=== PATIENT | male | born 1955 | race Caucasian/White ===

== ENCOUNTER 2018-03-26 16:21 | Inpatient (IN) | payer OTHER, SELFPAY ==
--- NOTE | 2018-03-26 17:10 | RAD REPORT ---
EXAM DESCRIPTION: [place] Single View03/26/2018 4:57 pm CLINICAL HISTORY: Chest pain COMPARISON: none FINDINGS: A 4.5 centimeter opacity is present within the mid right lung. The left lung is clear. The lungs are hyperaerated The heart is normal size IMPRESSION: 4.5 centimeter opacity within the mid right lung may represent neoplasm or pneumonia. C T chest is recommended
[2018-03-26 17:12] LABS: Absolute Neutrophil 4.3 K/uL (1.8-8.0); Basophils % 0.3 % (0-1.3); Eosinophils % 0.5 % (0-4.4); Hematocrit 31.5 % (39.6-49.0); MPV 9.8 fL (7.6-11.3); Monocytes % 15.1 % (3.3-12.3); Protime INR 1.12; RBC Red Blood Cell Count 3.03 M/uL (4.33-5.43)
[2018-03-26] MEDS ORDERED: NA CHLORIDE 0.9% 1,000 ML ONE (17:25)
[2018-03-26 17:34] LABS: ALT/SGPT 21 U/L (12-78); AST/SGOT 60 U/L (15-37); Albumin 2.6 g/dL (3.4-5.0); Alkaline Phosphatase 133 U/L (45-117); BUN Blood Urea Nitrogen 18 mg/dL (7-18); Bicarbonate 33 mmol/L (21-32); Bilirubin Direct 0.5 mg/dL (0-0.2); Bilirubin Total 0.8 mg/dL (0.2-1.0); Glucose Level 111 mg/dL (74-106); Magnesium 1.5 mg/dL (1.8-2.4); NT PRO-BNP 157 pg/mL (<125); Protein, Total 6.6 g/dL (6.4-8.2); Sodium Level 129 mmol/L (136-145); Troponin (Emerg Dept Use Only) < 0.02 ng/mL (0.0-0.045)
[2018-03-26 17:37] LABS: Potassium 2.6 mmol/L (3.5-5.1)
[2018-03-26] MEDS ORDERED: POTASSIUM 25 MEQ EFFERV TAB ONE (18:00)
[2018-03-26] MEDS ORDERED: Magnesium Sulfate 2gm IVPB 2 G/50 ML BAG IV ONE (18:01)
--- NOTE | 2018-03-26 18:14 | RAD REPORT ---
EXAM DESCRIPTION: CT - Thorax W/ Con CLINICAL HISTORY: Chest pain PAIN COMPARISON: Chest Single View dated 03/26/2018 FINDINGS: The lungs are mildly emphysematous. An irregular mass lesion is identified in the lateral right upper lobe measuring 4.5 x 3.7 cm abutting the pleural surface. There is a significant amount o f internal necrosis present. No pleural thickening or pleural effusion. No pneumothorax. No axillary, mediastinal or hilar adenopathy. No concerning bony finding. Diffuse fatty liver. All CT scans are performed using dose optimization technique as appropriate and may include automated exposure control or mA/KV adjustment according to patient size. IMPRESSION: Irregular mass lesion lateral right upper lobe (4.1 x 3.7 cm) with internal necrosis, li venus neoplastic.
[2018-03-26 18:20] LABS: Blood Morphology Comment NOT SEEN (NOT SEEN); Platelet Estimate DECR
[2018-03-26] MEDS ORDERED: PIPER/TAZO/NS 3.375gm 3.375 GM/100 ML BAG ONE (18:41)
--- NOTE | 2018-03-26 18:41 | ER ---
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 Chest pain is described as "dull pressure". Transition of care: patient was not received from another setting of care. Onset of symptoms was March 24, 2018. Risk Assessment: Do you want to hurt yourself or someone else? Patient reports no desire to harm self or others. Care prior to arrival: None. 16:30 Method Of Arrival: Ambulatory hb 16:30 Acuity: WALT 3 hb 18:44 Initial Sepsis Screen: Does the patient meet any 2 criteria? No. Patient's initial rv sepsis screen is negative. Does the patient have a suspected source of infection? No. Patient's initial sepsis screen is negative. Historical: - Allergies: 16:33 No Known Allergies; hb - Home Meds: 16:33 None [Active]; hb - PMHx: 16:33 None; hb - PSHx: 16:33 Vasectomy; hb - Immunization history:: Adult Immunizations up to date. - Social history:: Smoking status: Patient uses tobacco products, smokes one-half pack cigarettes per day. - Ebola Screening: : No symptoms or risks identified at this time. Screenin:44 Abuse screen: Denies threats or abuse. Denies injuries from another. Nutritional rv screening: No deficits noted. Tuberculosis screening: No symptoms or risk factors identified. Fall Risk None identified. Assessment: 17:00 General: Appears in no apparent distress. uncomfortable, Behavior is calm, cooperative. rv 17:00 Pain: Complains of pain in chest. Neuro: Level of Consciousness is awake, alert, obeys rv commands, Oriented to person, place, time, situation. Cardiovascular: Capillary refill < 3 seconds. Respiratory: Airway is patent. GI: No signs and/or symptoms were reported involving the gastrointestinal system. : No signs and/or symptoms were reported regarding the genitourinary system. EENT: No signs and/or symptoms were reported regarding the EENT system. Derm: Skin is intact. Musculoskeletal: No signs and/or symptoms reported regarding the musculoskeletal system. 18:44 Reassessment: Patient appears in no apparent distress at this time. rv Vital Signs: 16:29 BP 121 / 86; Pulse 98; Resp 18; Temp 99.6; Pulse Ox 96% on R/A; Pain 5/10; hb 18:08 BP 139 / 96; Pulse 95; Resp 18; Pulse Ox 98% on R/A; rv 18:30 BP 111 / 82; Pulse 93; Resp 18 S; Pulse Ox 96% on R/A; rv ED Course: 16:26 Patient arrived in ED. sb2 16:27 None, None is Private Physician. sb2 16:30 Martha Jameson [facility]NP-C [facility]. kb 16:31 Oscar Ackerman MD is Attending Physician. kb 16:32 Triage completed. hb 16:32 Arm band placed on right wrist. hb 16:50 Inserted saline lock: 18 gauge in right antecubital area, using aseptic technique. rv Blood collected. 16:52 EKG done, by substance abuse technician. reviewed by Martha MUHAMMAD. sm3 16:56 X-ray completed. Portable x-ray completed in exam room. Patient tolerated procedure mh1 well. 16:57 XRAY Chest (1 view) In Process Unspecified. EDMS 17:[address] nj 18:02 CT completed. Patient tolerated procedure well. Patient moved back from CT. nj 18:06 CT Chest W/ Con In Process Unspecified. EDMS 18:39 Ally Jeffrey MD is Hospitalizing Provider. kb 18:44 Patient has correct armband on for positive identification. Bed in low position. Call rv light in reach. Side rails up X 1. Adult w/ patient. Pulse ox on. NIBP on. 19:42 Notified Nurse Practitioner and/or Physician Lead Printer of a critical lab result(s), fc corrected ETOH level of <3. 20:45 No provider procedures requiring assistance completed. Patient admitted, IV remains in rv place. intact. Administered Medications: 16:50 Drug: NS 0.9% 1000 ml Route: IV; Rate: 1000 ml; Site: right antecubital; rv 18:45 Follow up: IV Status: Completed infusion rv 18:13 Drug: Potassium Effervescent Tablet 50 mEq Route: PO; rv 18:45 Follow up: Response: No adverse reaction rv 18:13 Drug: Magnesium Sulfate 2 grams Route: IVPB; Infused Over: 2 hrs; Site: right rv antecubital; 19:18 Follow up: IV Status: Completed infusion rv 19:19 Drug: Zosyn 3.375 grams Route: IVPB; Infused Over: 60 mins; Site: right antecubital; rv 20:45 Follow up: IV Status: Infusion continued upon admission rv Outcome: 18:39 Decision to Hospitalize by Provider. kb 20:46 Admitted to Tele accompanied by tech, via wheelchair, room 426, Report called to jessica fajardo rn 20:46 Condition: good 20:46 Instructed on the need for admit. 20:46 Patient left the ED. rv Signatures: Dispatcher [employer] EDMS Martha Jameson, DTP OPERATOR-C DTP OPERATOR-Ckb Jory Jacobs 1 Jeanine Welch, RN RN Janey Manriquez, ALICIA RN Martinez [place] 2 Natasha Crum 3 Chuck Pressley RN RN rv
--- NOTE | 2018-03-26 18:42 | EDPHYS ---
Physician Documentation [facility] Name: Sage Seymour Age: 62 yrs Sex: Male : 1955 Arrival Date: 03/26/2018 Time: 16:26 Bed 30 Private MD: None, None ED Physician Oscar Ackerman HPI: 03/26 18:40 This 62 yrs old Male presents to ER via Ambulatory with complaints of Painful kb Cough. 18:40 The patient or guardian reports cough, that is intermittent, described as moderate, kb with no sputum, difficulty breathing, flu symptoms, myalgias. Onset: The symptoms/episode began/occurred 3 day(s) ago. Severity of symptoms: At their worst the symptoms were moderate, in the emergency department the symptoms are unchanged. Modifying factors: The symptoms are alleviated by nothing, the symptoms are aggravated by nothing. Associated signs and symptoms: Pertinent positives: chest pain, Pertinent negatives: diarrhea, ear ache, fever, nausea, rhinorrhea, sore throat, vomiting. The patient has not experienced similar symptoms in the past. The patient has not recently seen a physician. Pt reports chest pain, shortness of breath, chills and cough since Saturday. States he normally drinks 1/2 of a 1.75L bottle of tequila daily, but has been in a detox center since Saturday. "My body is shutting down. I can't do anything. I can't even brush my teeth sometimes because of weakness and depression.". Historical: - Allergies: 16:33 No Known Allergies; hb - Home Meds: 16:33 None [Active]; hb - PMHx: 16:33 None; hb - PSHx: 16:33 Vasectomy; hb - Immunization history:: Adult Immunizations up to date. - Social history:: Smoking status: Patient uses tobacco products, smokes one-half pack cigarettes per day. - Ebola Screening: : No symptoms or risks identified at this time. ROS: 18:39 ENT: Negative for injury, pain, and discharge, Neck: Negative for injury, pain, and kb swelling, Abdomen/GI: Negative for abdominal pain, nausea, vomiting, diarrhea, and constipation, Back: Negative for injury and pain, : Negative for injury, bleeding, discharge, and swelling, MS/Extremity: Negative for injury and deformity, Skin: Negative for injury, rash, and discoloration, Neuro: Negative for headache, weakness, numbness, tingling, and seizure. 18:39 Constitutional: Positive for chills, Negative for body aches, fatigue, fever, malaise, poor PO intake, weight loss. 18:39 Cardiovascular: Positive for chest pain. 18:39 Respiratory: Positive for cough, shortness of breath, Negative for dyspnea on exertion, hemoptysis, orthopnea, pleurisy, sputum production, wheezing. Exam: 18:40 Constitutional: This is a well developed, well nourished patient who is awake, alert, kb and in no acute distress. Head/Face: Normocephalic, atraumatic. ENT: Nares patent. No nasal discharge, no septal abnormalities noted. Tympanic membranes are normal and external auditory canals are clear. Oropharynx with no redness, swelling, or masses, exudates, or evidence of obstruction, uvula midline. Mucous membranes moist. Neck: Trachea midline, no thyromegaly or masses palpated, and no cervical lymphadenopathy. Supple, full range of motion without nuchal rigidity, or vertebral point tenderness. No Meningismus. Chest/axilla: Normal chest wall appearance and motion. Nontender with no deformity. No lesions are appreciated. Cardiovascular: Regular rate and rhythm with a normal S1 and S2. No gallops, murmurs, or rubs. Normal PMI, no JVD. No pulse deficits. Respiratory: Lungs have equal breath sounds bilaterally, clear to auscultation and percussion. No rales, rhonchi or wheezes noted. No increased work of breathing, no retractions or nasal flaring. Abdomen/GI: Soft, non-tender, with normal bowel sounds. No distension or tympany. No guarding or rebound. No evidence of tenderness throughout. Skin: Warm, dry with normal turgor. Normal color with no rashes, no lesions, and no evidence of cellulitis. MS/ Extremity: Pulses equal, no cyanosis. Neurovascular intact. Full, normal range of motion. Neuro: Awake and alert, GCS 15, oriented to person, place, time, and situation. Cranial nerves II-XII grossly intact. Motor strength 5/5 in all extremities. Sensory grossly intact. Cerebellar exam normal. Normal gait. Vital Signs: 16:29 BP 121 / 86; Pulse 98; Resp 18; Temp 99.6; Pulse Ox 96% on R/A; Pain 5/10; hb 18:08 BP 139 / 96; Pulse 95; Resp 18; Pulse Ox 98% on R/A; rv 18:30 BP 111 / 82; Pulse 93; Resp 18 S; Pulse Ox 96% on R/A; rv MDM: 16:33 Patient medically screened. kb 18:37 Data reviewed: vital signs, nurses notes. Data interpreted: Pulse oximetry: on room air kb is 96 %. Interpretation: normal. Counseling: I had a detailed discussion with the patient and/or guardian regarding: the historical points, exam findings, and any diagnostic results supporting the discharge/admit diagnosis, lab results, radiology results, the need for further work-up and treatment in the hospital. Physician consultation: Ally Jeffrey MD was contacted at 18:37, regarding admission, to the telemetry unit. and will see patient. 03/26 16:43 Order name: Basic Metabolic Panel; Complete Time: 17:39 kb 03/26 16:43 Order name: CBC with Diff; Complete Time: 18:22 kb 03/26 16:43 Order name: LFT's; Complete Time: 17:39 kb 03/26 16:43 Order name: Magnesium; Complete Time: 17:39 kb 03/26 16:43 Order name: NT PRO-BNP; Complete Time: 17:39 kb 03/26 16:43 Order name: PT-INR; Complete Time: 17:16 kb 03/26 16:43 Order name: Troponin (emerg Dept Use Only); Complete Time: 17:39 kb 03/26 16:43 Order name: XRAY Chest (1 view); Complete Time: 17:14 kb 03/26 16:43 Order name: Flu; Complete Time: 17:27 kb 03/26 16:43 Order name: Acetaminophen; Complete Time: 17:39 kb 03/26 16:43 Order name: ETOH Level; Complete Time: 19:40 kb 03/26 16:43 Order name: Salicylate; Complete Time: 18:02 kb 03/26 16:43 Order name: Urine Drug Screen kb 03/26 18:19 Order name: Manual Differential; Complete Time: 18:22 EDMS 03/26 16:43 Order name: EKG; Complete Time: 16:45 kb 03/26 16:43 Order name: Cardiac monitoring; Complete Time: 18:45 kb 03/26 16:43 Order name: EKG - Nurse/Tech; Complete Time: 17:59 kb 03/26 16:43 Order name: IV Saline Lock; Complete Time: 17:59 kb 03/26 16:43 Order name: Labs collected and sent; Complete Time: 17:59 kb 03/26 16:43 Order name: O2 Per Protocol; Complete Time: 17:59 kb 03/26 16:43 Order name: O2 Sat Monitoring; Complete Time: 17:59 kb 03/26 17:40 Order name: CT Chest W/ Con; Complete Time: 18:17 kb Administered Medications: 16:50 Drug: NS 0.9% 1000 ml Route: IV; Rate: 1000 ml; Site: right antecubital; rv 18:45 Follow up: IV Status: Completed infusion rv 18:13 Drug: Potassium Effervescent Tablet 50 mEq Route: PO; rv 18:45 Follow up: Response: No adverse reaction rv 18:13 Drug: Magnesium Sulfate 2 grams Route: IVPB; Infused Over: 2 hrs; Site: right rv antecubital; 19:18 Follow up: IV Status: Completed infusion rv 19:19 Drug: Zosyn 3.375 grams Route: IVPB; Infused Over: 60 mins; Site: right antecubital; rv 20:45 Follow up: IV Status: Infusion continued upon admission rv Disposition: 03/26/18 18:39 Hospitalization ordered by Ally Jeffrey for Inpatient Admission. 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 - Bed requested for Telemetry/MedSurg (Inpatient). - Status is Inpatient Admission. rv - Condition is Stable. - Problem is new. - Symptoms are unchanged. UTI on Admission? No Addendum: 03/28/2018 07:14 Co-signature as Attending Physician, Oscar Ackerman MD. r n Signatures: Dispatcher [employer] Martha Traore, SABINA MARTINEZ-Oscar Messer MD MD rn Garcia, Cindy, RN RN cg Baxter, Heather, RN RN hb Vicente, Ronaldo RN RN rv Corrections: (The following items were deleted from the chart) 03/26 19:25 18:39 Hospitalization Ordered by Ally Jeffrey MD for Inpatient Admission. 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 Bed requested for Telemetry/MedSurg (Inpatient). Status is Inpatient Admission. Condition is Stable. Problem is new. Symptoms are unchanged. UTI on Admission? No. kb 20:46 19:25 03/26/2018 18:39 Hospitalization Ordered by Ally Jeffrey MD for Inpatient rv Admission. 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 Bed requested for Telemetry/MedSurg (Inpatient). Status is Inpatient Admission. Condition is Stable. Problem is new. Symptoms are unchanged. UTI on Admission? No. cg
[2018-03-26] MEDS ORDERED: MORPHINE 4 MG/ML SYR ONE (19:48)
[2018-03-26] MEDS ORDERED: ONDANSETRON 4 MG/2 ML VIAL ONE (19:48)
[2018-03-26 21:11] LABS: Urine Appearance CLEAR; Urine Bilirubin NEGATIVE (NEG); Urine Blood NEGATIVE (NEG); Urine Color YELLOW; Urine Glucose NEGATIVE (NEG); Urine Protein NEGATIVE (NEG); Urine Specific Gravity >=1.030 (1.005-1.030)
[2018-03-26 21:12] LABS: Urine Microscopic Reflex NO UMIC
[2018-03-26] MEDS ORDERED: ALPRAZOLAM 0.5 MG TABLET PO ONE (21:29)
[2018-03-26 21:58] LABS: Barbiturates NEGATIVE (NEGATIVE); Benzodiazepines NEGATIVE (NEGATIVE); Cocaine NEGATIVE (NEGATIVE); METHAMPHETAM NEGATIVE (NEGATIVE); Methadone NEGATIVE (NEGATIVE); Opiates NEGATIVE (NEGATIVE); Phencyclidine NEGATIVE (NEGATIVE); THC Cannibis NEGATIVE (NEGATIVE)
[2018-03-26] MEDS ORDERED: POTASSIUM CL SA 10 MEQ TAB PO ONE (21:58)
--- NOTE | 2018-03-26 23:12 | EKG ---
Test Date: 2018-03-26 Test Time: 16:44:08 Java [email or web address] Application Developer: YOLIE MEASUREMENT RESULTS: Intervals: Rate: 91 UT: 174 QRSD: 106 QT: 388 QTc: 477 [place]: P: 20 UT: 174 QRS: -50 T: 43 INTERPRETIVE STATEMENTS: Sinus rhythm with occasional premature ventricular complexes Left axis deviation Abnormal ECG No previous ECG available for comparison Electronically Signed On 03-26-18 23:11:52 SCHOOL SERVICES OFFICER by Trevor Hartman
[2018-03-27 04:20] LABS: Absolute Lymphocytes (CBC) 1.2 K/uL (0.7-4.9); Absolute Monocytes 0.7 K/uL (0.1-1.3); Absolute Neutrophil 3.7 K/uL (1.8-8.0); Basophils % 0.2 % (0-1.3); Eosinophils % 1.3 % (0-4.4); Hematocrit 28.2 % (39.6-49.0); Lymphocytes % 21.3 % (15.3-44.8); MPV 10.3 fL (7.6-11.3); Monocytes % 12.7 % (3.3-12.3); RBC Red Blood Cell Count 2.71 M/uL (4.33-5.43)
[2018-03-27 04:38] LABS: ALT/SGPT 17 U/L (12-78); AST/SGOT 50 U/L (15-37); Albumin 2.3 g/dL (3.4-5.0); Alkaline Phosphatase 113 U/L (45-117); BUN Blood Urea Nitrogen 12 mg/dL (7-18); Bicarbonate 34 mmol/L (21-32); Bilirubin Total 0.8 mg/dL (0.2-1.0); Glucose Level 95 mg/dL (74-106); Potassium 3.1 mmol/L (3.5-5.1); Protein, Total 5.7 g/dL (6.4-8.2); Sodium Level 132 mmol/L (136-145)
[2018-03-27 04:48] VITALS: BMI 21.5
[2018-03-27] MEDS ORDERED: Magnesium Sulfate 2gm IVPB 2 G/50 ML BAG IV ONE (04:50)
[2018-03-27] MEDS ORDERED: POTASSIUM 25 MEQ EFFERV TAB PO ONE (04:51)
[2018-03-27 05:01] LABS: Phosphorus 2.9 mg/dL (2.5-4.9)
--- NOTE | 2018-03-27 07:04 | P.HP ---
Certification for Inpatient Patient admitted to: Inpatient With expected LOS: >2 Midnights Patient will require the following post-hospital care: None Practitioner: I am a practitioner with admitting privileges, knowledge of patient current condition, hospital course, and medical plan of care. Services: Services provided to patient in accordance with Admission requirements found in Title 42 Section 412.3 of the Code of Federal Regulations Patient History Date of Service: 03/26/18 Reason for admission: Alcohol withdrawal/DTs/lung mass History of Present Illness: Patient is a 62-year-old gentleman who came into the hospital with withdrawals. Patient had been drinking Tequila heavily since he lost his job. He normally drinks one drink/night, but since December he has started drinking much more heavily. He decided he wanted to stop drinking. He has been coughing can congested for the last few months. Patient also admits to a 25 lb weight loss since December. Otherwise, he denies any other complaints. He denies any hemoptysis. Decision was made to admit the patient to the hospital for further workup. Allergies No Known Allergies Allergy (Unverified 03/26/18 19:43) Home Medications: NK [No Home Meds] 03/26/18 - Past Medical/Surgical History Has patient received pneumonia vaccine in the past: No Diabetic: No Past Medical History: Patient denies medical history -: Vasectomy - Family History Mother Medical History: Heart disease, Hypertension, Diabetes - Social History Smoking Status: Current every day smoker Alcohol use: Yes CD- Drugs: No Caffeine use: No Place of Residence: Home Review of Systems 10-point ROS is otherwise unremarkable Physical Examination - Vital Signs Temperature: 98.6 F Blood Pressure: 106/73 Pulse: 86 Respirations: 20 Pulse Ox (%): 95 - Physical Exam General: Alert, In no apparent distress, Oriented x3 HEENT: Atraumatic, PERRLA, Mucous membr. moist/pink, EOMI, Sclerae nonicteric Neck: Supple, 2+ carotid pulse no bruit, No LAD, Without JVD or thyroid abnormality Respiratory: Clear to auscultation bilaterally, Normal air movement Cardiovascular: Regular rate/rhythm, Normal S1 S2, No murmurs Gastrointestinal: Normal bowel sounds, Soft and benign, Non-distended, No tenderness Musculoskeletal: No clubbing, No swelling, No tenderness Integumentary: No rashes Neurological: Normal gait, Normal speech, Normal strength at 5/5 x4 extr, Normal tone, Sensation intact, Cranial nerves 3-12 intact, Normal affect Lymphatics: No axilla or inguinal lymphadenopathy - Studies Laboratory Data (last 24 hrs) 03/26/18 16:55: PT 13.2 H, INR 1.12 03/26/18 16:55: WBC 6.4, Hgb 10.9 L, Hct 31.5 L, Plt Count 125 L 03/26/18 16:55: Sodium 129 L, Potassium 2.6 L*, BUN 18, Creatinine 0.74, Glucose 111 H, Magnesium 1.5 L, Total Bilirubin 0.8, AST 60 H, ALT 21, Alkaline Phosphatase 133 H Microbiology Data (last 24 hrs): 03/26/18 16:50 Nasopharnyx Influenza Type A Antigen Screen - Final 03/26/18 16:50 Nasopharnyx Influenza Type B Antigen Screen - Final Assessment & Plan - Problems (Diagnosis) (1) Alcohol withdrawal Current Visit: Yes Status: Acute (2) Weight loss Current Visit: Yes Status: Acute (3) Cavitating mass of lung Current Visit: Yes Status: Acute - Plan 1. Librium t.i.d. 2. Banana bag daily 3. Pulmonary consultation for possible bronchoscopy 4. Monitor electrolytes 5. GI and DVT prophylaxis - Advance Directives Does patient have a Living Will: No Does patient have a Durable POA for Healthcare: No - Code Status/Comfort Care Code Status Assessed: Yes Code Status: Full Code Critical Care: No Time Spent Managing PTS Care (In Minutes): 50
[2018-03-27] MEDS ORDERED: INFLUENZA VACCINE (for 3y+) 0.5 ML DOSE IMVAC ONE (08:00)
--- NOTE | 2018-03-27 14:41 | P.CNS ---
Date of Consult: 03/27/18 Chief Complaint: Alcohol withdrawal/DTs/lung mass History of Present Illness: Patient is 62 years of age admitted with shortness of breath and chest discomfort started on the left side spread across his chest he got laid off in December from his job and since then he has been drinking and smoking very heavily patient had electrolyte imbalance also lost about 25 lb in weight claims due to significant depression is been smoking heavily for a long time does not have any medical problems not see any physicians or take any medications Allergies No Known Allergies Allergy (Unverified 03/26/18 19:43) Home Medications: NK [No Home Meds] 03/26/18 - Past Medical/Surgical History Diabetic: No -: Vasectomy - Family History Mother Medical History: Heart disease, Hypertension, Diabetes - Social History Smoking Status: Current every day smoker Alcohol use: Yes CD- Drugs: No Caffeine use: No Place of Residence: Home Review of Systems 10-point ROS is otherwise unremarkable Physical Examination Temp Pulse Resp BP Pulse Ox 97.3 F 90 18 124/78 96 03/27/18 12:00 03/27/18 12:00 03/27/18 12:00 03/27/18 12:00 03/27/18 12:00 General: Alert, Oriented x3 Neck: Supple Respiratory: Expiratory wheezes Cardiovascular: No edema, Regular rate/rhythm, Normal S1 S2 Laboratory Data (last 24 hrs) 03/26/18 16:55: PT 13.2 H, INR 1.12 03/26/18 16:55: WBC 6.4, Hgb 10.9 L, Hct 31.5 L, Plt Count 125 L 03/26/18 16:55: Sodium 129 L, Potassium 2.6 L*, BUN 18, Creatinine 0.74, Glucose 111 H, Magnesium 1.5 L, Total Bilirubin 0.8, AST 60 H, ALT 21, Alkaline Phosphatase 133 H - Problems (1) Lung mass Current Visit: Yes Status: Acute Plan: Patient is 62 years of age heavy smoker or alcoholic admitted with the chest pain shortness of breath he has a right upper lobe lung mass for 4 cm status most likely cancer also is as some weight loss also anemic prominent electrolyte abnormality I guess is secondary from heavy alcohol abuse Patient does not have any medical insurance I have informed him that day he needs a lung biopsy by radiology at this mass is very peripheral he easily accessible by fine needle at and wall followup with Oncology regarding stage evaluation for resection (2) COPD (chronic obstructive pulmonary disease) Current Visit: Yes Status: Acute Plan: Patient's chest x-rays consistent with underlying COPD is a very heavy smoker and benefit from bronchodilators trial of steroids console not to smoke Qualifiers: Emphysema type: unspecified
--- NOTE | 2018-03-27 19:30 | P.PN ---
Subjective Date of Service: 03/27/18 Chief Complaint: Alcohol withdrawal/DTs/lung mass Subjective: No C/O voiced Patient seen and examined at bedside. Chart reviewed and case discussed with Dr. Jacobson, Dr. Jean and nursing staff. No new complaints at this time. Review of Systems 10-point ROS is otherwise unremarkable Physical Examination - Vital Signs Temperature: 97.2 F Blood Pressure: 139/88 Pulse: 88 Respirations: 18 Pulse Ox (%): 98 - Physical Exam General: Alert, In no apparent distress, Oriented x3 HEENT: Atraumatic, PERRLA, EOMI Neck: Supple, JVD not distended Respiratory: Clear to auscultation bilaterally, Normal air movement Cardiovascular: Regular rate/rhythm, Normal S1 S2 Gastrointestinal: Normal bowel sounds, No tenderness Musculoskeletal: No tenderness Integumentary: No rashes Neurological: Normal speech, Normal tone, Normal affect Lymphatics: No axilla or inguinal lymphadenopathy - Studies Microbiology Data (last 24 hrs): 03/26/18 16:50 Nasopharnyx Influenza Type A Antigen Screen - Final 03/26/18 16:50 Nasopharnyx Influenza Type B Antigen Screen - Final Assessment And Plan - Current Problems (Diagnosis) (1) Alcohol withdrawal Onset Date: 03/27/18 Current Visit: Yes Status: Acute (2) COPD (chronic obstructive pulmonary disease) Current Visit: Yes Status: Acute Qualifiers: Emphysema type: unspecified (3) Cavitating mass of lung Onset Date: 03/27/18 Current Visit: Yes Status: Acute (4) Lung mass Current Visit: Yes Status: Acute (5) Weight loss Onset Date: 03/27/18 Current Visit: Yes Status: Acute - Plan Patient Problems: Cavitating mass of lung (Acute 03/27/18) J98.4 Lung mass (Acute) R91.8 Weight loss (Acute 03/27/18) Suspected neoplastic mass in lung, patient needs a biopsy. Dr. Jacobson consulted. Discussed case with her. Biopsy with IR scheduled for tomorrow. Patient tylor be nPO after midnight. Patient may also be eligible for emergency medicaid if lung cancer, will consult SW/finance for starting paperwork. COPD (chronic obstructive pulmonary disease) (Acute) J44.9 Breathing treatments prn, Oxygen per protocol Alcohol withdrawal (Acute 03/27/18) F10.239 Withdrawal assessments IVF, B12, folate. Hold anticoagulation, NPO after midnight. FU coags in the am.
[2018-03-28 06:29] LABS: Protime INR 1.03
[2018-03-28 06:51] LABS: ALT/SGPT 22 U/L (12-78); AST/SGOT 69 U/L (15-37); Albumin 2.6 g/dL (3.4-5.0); Alkaline Phosphatase 128 U/L (45-117); BUN Blood Urea Nitrogen 12 mg/dL (7-18); Bicarbonate 27 mmol/L (21-32); Bilirubin Total 0.9 mg/dL (0.2-1.0); Glucose Level 76 mg/dL (74-106); Potassium 3.5 mmol/L (3.5-5.1); Protein, Total 6.4 g/dL (6.4-8.2); Sodium Level 129 mmol/L (136-145)
[2018-03-28] MEDS ORDERED: MIDAZOLAM HCL 2 MG/2 ML INJ ONE (11:12)
[2018-03-28] MEDS ORDERED: FENTANYL CITR 100 MCG/2 ML ONE (11:12)
[2018-03-28] MEDS ORDERED: DIPHENHYDRAMINE 50 MG/ML VIAL ONE (11:13)
[2018-03-28] MEDS ORDERED: NALOXONE 0.4 MG/ML VIAL ONE (11:13)
[2018-03-28] MEDS ORDERED: FLUMAZENIL 0.1 MG/ML (5 mL VIAL) IV ONE (11:13)
[2018-03-28] MEDS ORDERED: NA CHLORIDE 0.9% 1,000 ML ONE (11:32)
--- NOTE | 2018-03-28 12:11 | RAD REPORT ---
EXAM DESCRIPTION: CT - Lung Biopsy Perc w/CT - 03/28/2018 11:48 am CLINICAL HISTORY: lung mass Right lung mass COMPARISON: No comparisons FINDINGS: Preoperative diagnosis: Right lung mass Post operative diagnosis: Same Conscious Sedation: IV conscious sedation for 45 minutes utilizing fentanyl and midazolam was adminis tered. Patient was continuously monitored by nursing staff. Contrast used: NONE Estimated blood loss: less than 5 mL Specimens: 4 x 1 cm 18 gauge core specimens The patient was placed supine on the table and the right chest area was prepped and draped in the usu al sterile fashion. 1% lidocaine was infiltrated into the subcutaneous tissues for local anesthesia. Under computed tomographic guidance, a 17 gauge introducer was advanced into the lesion. Subsequently , a 18 gauge, 6 cm long, 10 mm throw core biopsy gun was advanced into the lesion and 4 cores were ob tained. Postprocedure imaging demonstrated pneumothorax or no complications. Samples were given to pathology for analysis. The patient tolerated the procedure without immediate complication and transferred to [facility] floor in stable condition. IMPRESSION: Successful CT-guided right lung mass biopsy as detailed above. All CT scans are performed using dose optimization technique as appropriate and may include automated exposure control or mA/KV adjustment according to patient size.
--- NOTE | 2018-03-28 15:00 | P.PN ---
Subjective Date of Service: 03/28/18 Chief Complaint: Alcohol withdrawal/DTs/lung mass Patient seen and examined at bedside with RN. Chart reviewed. Case discussed with radiology this a.m.. Case also discussed with Oncology along with pulmonology. Scheduled for Biopsy today with IR Review of Systems 10-point ROS is otherwise unremarkable Physical Examination - Vital Signs Temperature: 97.2 F Blood Pressure: 126/86 Pulse: 74 Respirations: 18 Pulse Ox (%): 94 - Physical Exam General: Alert, In no apparent distress HEENT: Atraumatic, PERRLA, EOMI Neck: Supple, JVD not distended Respiratory: Clear to auscultation bilaterally, Normal air movement Cardiovascular: Regular rate/rhythm, Normal S1 S2 Gastrointestinal: Normal bowel sounds, No tenderness Musculoskeletal: No tenderness Integumentary: No rashes Neurological: Normal speech, Normal tone, Normal affect Lymphatics: No axilla or inguinal lymphadenopathy - Studies Medications List Reviewed: Yes Assessment And Plan - Current Problems (Diagnosis) (1) Cavitating mass of lung Onset Date: 03/27/18 Current Visit: Yes Status: Acute Plan: Cavitary mass noted on the CT scan of the chest right hilar region more than 3 4 in 5 cm with a regular were [facility]. -Most likely consistent with malignancy given the history of smoking for over 20 years and recent weight loss of more than 20 lb -pulmonology consulted. Appreciate recommendation -CT-guided lung biopsy at this time -unable to do bronchoscopy due to the location of the mass -radiology consulted. Appreciated recommendations -scheduled for CT-guided lung biopsy today -will follow up with pathology results here shortly -oncology consulted. Appreciated recommendations at this time Patient is from a out of the an uninsured and would like to go back to [place] for his further treatment if possible. Financial department notified to help patient with application for emergency Medicaid versus any other resources available for possible lung cancer. (2) Alcohol withdrawal Onset Date: 03/27/18 Current Visit: Yes Status: Acute Plan: Currently stable. -patient recently discharged from alcohol rehab program. Qualifiers: Complication of substance-induced condition: uncomplicated Qualified Code(s ): F10.230 - Alcohol dependence with withdrawal, uncomplicated (3) COPD (chronic obstructive pulmonary disease) Current Visit: Yes Status: Chronic Plan: COPD -currently on duo nebs, nasal cannula Qualifiers: COPD type: chronic bronchitis Chronic bronchitis type: simple Qualified Code(s): J41.0 - Simple chronic bronchitis (4) Tobacco abuse Current Visit: Yes Status: Acute Plan: The history of more than 20 years. Smokes 1/2 pack a day. - Plan Pending clinical improvement at this time. Will monitor patient for next 24-48 hr post lung biopsy. social worker masters to help patient arrange for outpatient followup along with emergency Medicaid application versus other resources for possible lung cancer. Oncology pulmonology and radiology all consulted on the case will follow up with appropriate discharge recommendation as patient does not have a followup appointment for a primary care doctor. Discharge Plan: Home Plan to discharge in: 48 Hours - Code Status/Comfort Care Code Status Assessed: Yes Critical Care: No
[2018-03-28] MEDS ORDERED: POTASSIUM 25 MEQ EFFERV TAB PO ONE (15:42)
--- NOTE | 2018-03-28 17:00 | RAD REPORT ---
EXAM DESCRIPTION: RAD - Chest Single View - 03/28/2018 4:45 pm CLINICAL HISTORY: Post biopsy chest film, lung mass COMPARISON: Lung biopsy CT same date, chest exam March 26 TECHNIQUE: AP portable chest image was obtained 1628 hours . FINDINGS: Patient's fibrotic an obstructive lung pattern again noted. Previously detailed lateral ri ght midlung field mass is seen. No post biopsy pneumothorax is identifiable. There is no fluid or blood suspected in the pleural spac e. No lung parenchymal hemorrhage identifiable. IMPRESSION: No post biopsy pneumothorax, parenchymal hemorrhage or other biopsy related finding.
[2018-03-28] MEDS ORDERED: TEMAZEPAM 15 MG CAP PO PRN (21:52)
[2018-03-29 06:05] LABS: Absolute Lymphocytes (CBC) 1.3 K/uL (0.7-4.9); Absolute Monocytes 0.9 K/uL (0.1-1.3); Absolute Neutrophil 3.4 K/uL (1.8-8.0); Basophils % 0.6 % (0-1.3); Eosinophils % 2.2 % (0-4.4); Hematocrit 31.8 % (39.6-49.0); Lymphocytes % 22.8 % (15.3-44.8); MPV 10.7 fL (7.6-11.3); Monocytes % 15.2 % (3.3-12.3); RBC Red Blood Cell Count 2.98 M/uL (4.33-5.43)
[2018-03-29 06:16] LABS: ALT/SGPT 23 U/L (12-78); AST/SGOT 62 U/L (15-37); Albumin 2.6 g/dL (3.4-5.0); Alkaline Phosphatase 125 U/L (45-117); BUN Blood Urea Nitrogen 13 mg/dL (7-18); Bicarbonate 30 mmol/L (21-32); Bilirubin Total 0.8 mg/dL (0.2-1.0); Glucose Level 84 mg/dL (74-106); Protein, Total 6.4 g/dL (6.4-8.2); Sodium Level 133 mmol/L (136-145)
[2018-03-29 06:50] LABS: Blood Morphology Comment NOTED (NOT SEEN); Macrocytosis 1+; Platelet Estimate DECR; Urine White Blood Cell Casts OK
[2018-03-29] MEDS ORDERED: DULERA 200/5 (MOMETASONE/FORMOTEROL) INHALER IH SCH (11:18)
--- NOTE | 2018-03-29 11:30 | P.PN ---
Date of Service: 03/29/18 Patient is status post biopsy was not in his room when event around his chest x- ray does not show any pneumothorax I discussed with his daughter needs to follow up with me next week for biopsy results as most certainly lung cancer he will also need a bronchodilator discussed with Elizabeth he will follow up with the primary care doctor the start him on antidepressants patient is a very heavy smoker I also informed that this is almost certainly lung cancer patient is trying to apply for Medicaid the lead of workup regarding pulmonary function test and a PET scan including an MRI of the brain judging from his x-ray he has presume severe COPD
--- NOTE | 2018-03-29 11:45 | RAD REPORT ---
EXAM DESCRIPTION: RADChest Pa And Lat (2 Views)03/29/2018 10:21 am CLINICAL HISTORY: right lung mass COMPARISON: March 28 FINDINGS: A pneumothorax is not seen status post right lung biopsy. A right hematoma is not noted
--- NOTE | 2018-03-29 11:58 | P.DS ---
Admission Date: 03/26/18 Discharge Date: 03/29/18 Primary Care Provider: none Disposition: ROUTINE DISCHARGE Discharge Condition: FAIR Reason for Admission: Alcohol withdrawal/DTs/lung mass Consultations: Pulmonary-Dr. Jean Oncology-Dr. Jacobson Procedures: CT scan: COMPARISON: Chest Single View dated 03/26/2018 FINDINGS: The lungs are mildly emphysematous. An irregular mass lesion is identified in the lateral right upper lobe measuring 4.5 x 3.7 cm abutting the pleural surface. There is a significant amount of internal necrosis present. No pleural thickening or pleural effusion. No pneumothorax. No axillary, mediastinal or hilar adenopathy. No concerning bony finding. Diffuse fatty liver. All CT scans are performed using dose optimization technique as appropriate and may include automated exposure control or mA/KV adjustment according to patient size. IMPRESSION: Irregular mass lesion lateral right upper lobe (4.1 x 3.7 cm) with internal necrosis, likely neoplastic. Follow CXR: COMPARISON: March 28 FINDINGS: A pneumothorax is not seen status post right lung biopsy. A right hematoma is not noted Medical Problem List: Irregular mass lesion to the lateral right upper lobe 4.1 x 3.7 cm with internal necrosis likely neoplastic, status post CT guided biopsy COPD Tobacco abuse Alcohol abuse with withdrawal Moderate malnutrition Hyponatremia with hypokalemia Anemia likely of chronic disease Suspect depression Brief History of Present Illness: 62-year-old male presented to the emergency room with history of alcohol and tobacco abuse. Patient had reported increasing cough and weight loss. Patient found to have some alcohol withdrawal. CT scan in the emergency room showed irregular lung mass. Patient admitted for further evaluation. Hospital Course: Patient presented with cough and alcohol withdrawal. Patient with noted hyponatremia and hypokalemia with moderate malnutrition. Patient also reported some weight loss over several months. Patient was admitted for treatment. Patient given IV fluids and replacement. CT scan of the lung revealed irregular mass lesion to the lateral right upper lobe 4.1 x 3.7 cm in size with internal necrosis likely neoplastic. Pulmonology was consulted. Pulmonology recommended CT-guided biopsy. This was done without complication. Results pending at discharge. Oncology was consulted to further assess. At discharge patient will follow up with pulmonology in 1 week to follow up results of biopsy. Oncology mentions that the patient will likely require CV surgery evaluation and possible future need for PET scan/MRI brain/biopsy of mediastinal lymph nodes to further evaluate for possible treatment. This will be done as outpatient. This was addressed in detail with patient and family. Patient will follow up with pulmonology to further address. Patient plans to establish care locally with Dr. Olivo. I did speak to Dr. Olivo who agrees. Patient with COPD. At discharge patient will be started on Dulera 200 mcg 2 puffs daily and albuterol 2 puffs 3 times a day as needed for shortness of breath. Patient will be given a sample of Dulera. Patient may crab picker samples with pulmonology at his follow up. Patient will follow up with pulmonology in 1 week to continue his care. Patient with tobacco and alcohol abuse. Patient understands tobacco and alcohol cessation will be important in the future for preparation of future care of his lung condition. This was addressed in detail. This can be followed up by his PCP. Patient plans to establish care locally. Patient with moderate malnutrition and anemia likely of chronic disease. At discharge patient will continue with thiamine 100 mg daily and folic acid 1 mg daily. Recommendation to recheck CBC in 1-2 weeks to follow up this hospitalization. Patient likely has underlying depression. Patient will need to follow up with a PCP soon to consider starting medication and to further monitor. Vital Signs/Physical Exam: Temp Pulse Resp BP Pulse Ox 98.1 F 78 20 119/80 98 03/29/18 08:00 03/29/18 08:00 03/29/18 08:00 03/29/18 08:00 03/29/18 08:00 General: Alert, In no apparent distress, Oriented x3, Cooperative, Other (Poor eye contact) HEENT: Atraumatic Neck: Supple Respiratory: Clear to auscultation bilaterally, Normal air movement Cardiovascular: Normal pulses, Regular rate/rhythm Gastrointestinal: Normal bowel sounds, Soft and benign, Non-distended, No tenderness, No masses, No rebound, No guarding Musculoskeletal: No erythema, No tenderness, No warmth Integumentary: No tenderness/swelling, No erythema, No warmth, No cyanosis Neurological: Normal speech, Normal strength at 5/5 x4 extr, Normal tone, Normal affect Laboratory Data at Discharge: WBC 5.8 K/uL (4.3-10.9) 03/29/18 04:37 Hgb 10.7 g/dL (13.6-17.9) L 03/29/18 04:37 Hct 31.8 % (39.6-49.0) L 03/29/18 04:37 Plt Count 146 K/uL (152-406) L D 03/29/18 04:37 PT 12.2 SECONDS (9.5-12.5) 03/28/18 05:40 INR 1.03 03/28/18 05:40 APTT 26.6 SECONDS (24.3-36.9) 03/28/18 05:40 Sodium 133 mmol/L (136-145) L 03/29/18 04:37 Potassium 4.0 mmol/L (3.5-5.1) 03/29/18 04:37 BUN 13 mg/dL (7-18) 03/29/18 04:37 Creatinine 0.70 mg/dL (0.55-1.3) 03/29/18 04:37 Glucose 84 mg/dL (74-106) 03/29/18 04:37 Phosphorus 2.9 mg/dL (2.5-4.9) 03/27/18 03:47 Magnesium 2.0 mg/dL (1.8-2.4) 03/28/18 05:40 Total Bilirubin 0.8 mg/dL (0.2-1.0) 03/29/18 04:37 AST 62 U/L (15-37) H 03/29/18 04:37 ALT 23 U/L (12-78) 03/29/18 04:37 Alkaline Phosphatase 125 U/L (45-117) H 03/29/18 04:37 Home Medications: Albuterol Sulfate [Proair Hfa] 2 puff IH TID PRN #1 hfa.aer.ad 03/29/18 Folic Acid 1 mg PO DAILY #90 tablet 03/29/18 Melatonin [Melatonin*] 3 mg PO BEDTIME #15 tablet 03/29/18 Mometasone/Formoterol [Dulera 200 Mcg/5 Mcg Inhaler] 2 puff IH BID #1 inhaler Thiamine HCl [Vitamin B-1*] 100 mg PO DAILY #90 tablet 03/29/18 New Medications: Albuterol Sulfate [Proair Hfa] 2 puff IH TID PRN #1 hfa.aer.ad PRN Reason: Shortness Of Breath Folic Acid 1 mg PO DAILY #90 tablet Melatonin [Melatonin*] 3 mg PO BEDTIME #15 tablet Mometasone/Formoterol [Dulera 200 Mcg/5 Mcg Inhaler] 2 puff IH BID #1 inhaler Thiamine HCl [Vitamin B-1*] 100 mg PO DAILY #90 tablet Patient Discharge Instructions: 1. Patient plans to establish care with Dr. Olivo. Please provide contact information. 2. Patient presented with cough and alcohol withdrawal. Patient with noted hyponatremia and hypokalemia with moderate malnutrition. Patient also reported some weight loss over several months. Patient was admitted for treatment. Patient given IV fluids and replacement. CT scan of the lung revealed irregular mass lesion to the lateral right upper lobe 4.1 x 3.7 cm in size with internal necrosis likely neoplastic. Pulmonology was consulted. Pulmonology recommended CT-guided biopsy. This was done without complication. Results pending at discharge. Oncology was consulted to further assess. At discharge patient will follow up with pulmonology in 1 week to follow up results of biopsy. Oncology mentions that the patient will likely require CV surgery evaluation and possible future need for PET scan/MRI brain/biopsy of mediastinal lymph nodes to further evaluate for possible treatment. This will be done as outpatient. This was addressed in detail with patient and family. Patient will follow up with pulmonology to further address. Patient plans to establish care locally with Dr. Olivo. I did speak to Dr. Olivo who agrees. 3. Patient with COPD. At discharge patient will be started on Dulera 200 mcg 2 puffs daily and albuterol 2 puffs 3 times a day as needed for shortness of breath. Patient will be given a sample of Dulera. Patient may crab picker samples with pulmonology at his follow up. Patient will follow up with pulmonology in 1 week to continue his care. 4. Patient with tobacco and alcohol abuse. Patient understands tobacco and alcohol cessation will be important in the future for preparation of future care of his lung condition. This was addressed in detail. This can be followed up by his PCP. Patient plans to establish care locally. 5. Patient with moderate malnutrition and anemia likely of chronic disease. At discharge patient will continue with thiamine 100 mg daily and folic acid 1 mg daily. Recommendation to recheck CBC in 1-2 weeks to follow up this hospitalization. 6. Patient likely has underlying depression. Patient will need to follow up with a PCP soon to consider starting medication and to further monitor. Diet: Regular Activity: Ad russell Followup: Dirk Jean MD [ACTIVE - CAN ADMIT] - Time spent managing pt's care (in minutes): 55
--- NOTE | 2018-03-29 12:39 | P.CNS ---
Date of Consult: 03/29/17 (Oncology) Reason for consultation Lung mass I was asked to see patient for a discussion so that he can have an overview of the necessary treatment scenarios for the RUL lung mass. Patient underwent CT guided biopsy of the lung mass on 03/28/18. Results are pending and likely would take atleast 5-7 days. Daughter at bedside as well. Based on the presentation, and risk factors being extensive smoking, the mass might likely be neoplastic. A detailed pathology to identify the histology of the mass is needed before a comprehensive treatment scenario can be suggested. Treatment could vary whether it is a small cell or a non small cell lung cancer. Patient made aware that an extensive work up is warranted which includes comprehensive imaging (PET/ or CT scans / MRI brain) and depending on the pathology, a mediastinal staging work up with EBUS might be needed. Possible treatment if lesion is cancerous is based on the pathology ofcourse, which likely might include +/- surgery +/- chemo +/- radiation or a combination. A negative biopsy does not preclude the diagnosis. Further intervention needs to be done to r/o malignancy. He seems to have macrocytic anemia likely from extensive alcoholism. This needs further monitoring and work up as well- retic ct/ iron panel, B12, folate, TSH/ other etc as indicated. He seems to be moving back to [place]. I insisted that he will need a primary care physician and also a housekeeping cleaner to begin with osmel and likely CT surgery and Oncology as indicated. He understands that any delay will likely lead to to progression if the mass is malignant. All questions were answered to their satisfaction. D/w medical team/ Dr Johnson.
[2018-03-29 13:02] VITALS: BP 145/83; TEMP 97.4
[2018-03-29 13:44] VITALS: O2SAT 100
[2018-03-29] MEDS ORDERED: MELATONIN 3 MG TABLET PO SCH (21:00)
[2018-03-30] MEDS ORDERED: FOLIC ACID 1 MG TABLET PO SCH (09:00)
[2018-03-30] MEDS ORDERED: THIAMINE HCL 100 MG TABLET PO SCH (09:00)
== END 2018-03-29 13:35 | disposition home or self-care (01) | DRG 897 ==
LOC: ER 16:21 → ERHOLD 18:38 → 4TH 20:02
PROVIDERS: ADMIT Family Medicine; ATTEND Family Medicine
PROC: 0BBK3ZX Excision of Right Lung, Percutaneous Approach, Diagnostic (ICD-10-PCS; principal; 2018-03-28)
DX: F10.231 Alcohol dependence with withdrawal delirium (principal); E44.0 Moderate protein-calorie malnutrition; E87.1 Hypo-osmolality and hyponatremia; J98.4 Other disorders of lung; R63.4 Abnormal weight loss; F17.210 Nicotine dependence, cigarettes, uncomplicated; F32.9 Major depressive disorder, single episode, unspecified; J44.9 Chronic obstructive pulmonary disease, unspecified; R91.8 Other nonspecific abnormal finding of lung field; E87.6 Hypokalemia; D63.8 Anemia in other chronic diseases classified elsewhere
CPT/HCPCS: 32405; 36415; 71045; 71046; 71260; 77012; 80048; 80053; 80076; 80307; 80320; 80329; 81003; 83735; 83880; 84100; 84132; 84484; 85025; 85610; 85730; 87804; 88305; 93005; 94760; 96361; 96365; 96366; 96367; 99285; J2250; J2310; J2405; J2543; J3010; J3475; J7030; J7606; Q9967

== ENCOUNTER 2018-04-01 12:51 | Observation (INO) | payer SELFPAY ==
[2018-04-01 13:29] LABS: Absolute Lymphocytes (CBC) 0.6 K/uL (0.7-4.9); Absolute Monocytes 0.5 K/uL (0.1-1.3); Basophils % 0.6 % (0-1.3); Eosinophils % 0.2 % (0-4.4); Hematocrit 31.8 % (39.6-49.0); Lymphocytes % 11.1 % (15.3-44.8); MPV 10.2 fL (7.6-11.3); Monocytes % 10.2 % (3.3-12.3)
--- NOTE | 2018-04-01 13:30 | RAD REPORT ---
EXAM DESCRIPTION: CT - Ct Stroke Brain Wo Cont - 04/01/2018 1:22 pm CLINICAL HISTORY: Confusion and hallucinations COMPARISON: None. TECHNIQUE: Computed axial tomography of the head was obtained. IV contrast was not requested. All CT scans are performed using dose optimization technique as appropriate and may include automated exposure control or mA/KV adjustment according to patient size. FINDINGS: An intracranial bleed is not seen . The ventricles are normal in caliber. No extra-axial fluid collection is noted. Fluid within the left maxillary and frontal sinus may indicate acute sinusitis IMPRESSION: No acute intracranial abnormality is seen. If patient's symptoms persist MRI of the bra in would be recommended. Dr Easley of the emergency room was notified at 01:25 p.m. April 01, 1999 and
[2018-04-01 13:35] LABS: Protime INR 1.09
[2018-04-01 13:42] LABS: BUN Blood Urea Nitrogen 12 mg/dL (7-18); Bicarbonate 26 mmol/L (21-32); Glucose Level 100 mg/dL (74-106); Potassium 3.5 mmol/L (3.5-5.1); Sodium Level 133 mmol/L (136-145)
[2018-04-01 13:54] LABS: Blood Morphology Comment NOTED (NOT SEEN); Macrocytosis 1+; Platelet Estimate ADEQ; Urine White Blood Cell Casts OK
--- NOTE | 2018-04-01 14:32 | RAD REPORT ---
EXAM DESCRIPTION: [place] Single View04/01/2018 2:25 pm CLINICAL HISTORY: Shortness of breath COMPARISON: March 26, 2018 FINDINGS: Right lateral mid lung opacity is present. Left lung appears clear of acute infiltrate. The heart is normal size
[2018-04-01] MEDS ORDERED: THIAMINE 200 MG/2 ML INJ ONE (15:29)
[2018-04-01] MEDS ORDERED: FOLIC ACID 5 MG/ML VIAL ONE (15:29)
--- NOTE | 2018-04-01 17:19 | RAD REPORT ---
EXAM DESCRIPTION: MRI - Brain W/Wo Cont - 04/01/2018 5:04 pm CLINICAL HISTORY: MENTAL STATUS CHANGE Lung carcinoma, headache, drowsiness COMPARISON: Ct Stroke Brain Wo Cont dated 04/01/2018 TECHNIQUE: Multi-sequence, multiplanar MR imaging of the brain was performed with contrast. FINDINGS: No intracranial hemorrhage, hydrocephalus, or extra-axial fluid collection. No edema or sh ift of midline structures. No intracranial mass. DWI is negative for acute CVA. The midline structures are normally formed. Mild mucoperiosteal thickening of both maxillary antra. M ild mucosal opacification of left frontoethmoidal sinuses. Post-contrast images show no abnormal enhancement to suggest intracranial metastatic disease. IMPRESSION: No acute intracranial abnormality is seen. No finding to indicate intracranial metastatic disease.
--- NOTE | 2018-04-01 17:54 | ER ---
Nurse's Notes [facility] Name: Sage Seymour Age: 62 yrs Sex: Male : 1955 Arrival Date: 04/01/2018 Time: 12:52 Bed 3 Private MD: Tho Olivo V Diagnosis: Syncope and collapse;Epilepsy and recurrent seizures Presentation: 04/01 13:00 Presenting complaint: Patient states: "I'm having hallucinations that started last ss night." Daughter reports that patient was searching through her house last night trying to find the door. Pt reports difficulty gathering his words, but is unsure when it started. Transition of care: patient was not received from another setting of care. Onset of symptoms was April 01, 2018. Risk Assessment: Do you want to hurt yourself or someone else? Patient reports no desire to harm self or others. Initial Sepsis Screen: Does the patient meet any 2 criteria? No. Patient's initial sepsis screen is negative. Does the patient have a suspected source of infection? No. Patient's initial sepsis screen is negative. Care prior to arrival: None. 13:00 Method Of Arrival: Ambulatory ss 13:00 Acuity: WALT 2 ss Historical: - Allergies: 13:07 No Known Allergies; ss - PMHx: 13:07 mass on lung; Anxiety; Depression; COPD; ss - Immunization history:: Adult Immunizations up to date. - Social history:: Smoking status: Patient uses tobacco products, denies chronic smoking, but will smoke occasionally. - Ebola Screening: : Patient denies exposure to infectious person Patient denies travel to an Ebola-affected area in the 21 days before illness onset. Screenin:28 Abuse screen: Denies threats or abuse. Denies injuries from another. Nutritional hb screening: No deficits noted. Tuberculosis screening: No symptoms or risk factors identified. Fall Risk Total Lewis Fall Scale indicates Low Risk Score (25-44 pts). Fall prevention measures have been instituted. Side Rails Up X 2 Frequent Obs/Assesments occuring Family Present and informed to notify staff if they need to leave bedside As available Patient and Family Educated on Fall Prevention Program and strategies. 13:30 Patient has been NPO before screening. The patient is alert, able to follow commands. hb The patient does not exhibit slurred or garbled speech The patient is not exhibiting difficulty speaking. The patient does not exhibit difficulty understanding words. The patient is able to swallow own secretions with no drooling or need for suction. Patient tolerated one teaspoon of water. No drooling, immediate coughing, gurgling, or clearing of the throat was noted. The patient tolerated 90mL of water. No drooling, immediate coughing, gurgling, or clearing of the throat was noted. The patient passed the bedside swallow screening. Oral medications may be given as ordered. Contact Physician for further diet orders. Assessment: 13:12 Reassessment: code stroke called. hb 13:13 Reassessment: Dr. Easley at bedside. hb 13:14 Reassessment: Pt to CT VIA stretcher. ss 13:14 Reassessment: BGL 133. hb 13:15 Reassessment: 20g RIGHT AC. hb 13:17 Reassessment: Blood collected and sent to outside lab with purple stroke stickers, lab hb notified. PT transported to CT via stretcher with Chan VARGAS. 13:25 Reassessment: CT negative, results called to Dr. Easley. hb 13:26 Reassessment: Pt returned from CT. hb 13:30 General: Appears in no apparent distress. Behavior is calm, cooperative. Pain: Denies hb pain. Neuro: Level of Consciousness is awake, obeys commands, confused, Oriented to person, place, It Senior Software Engineer Java are equal bilaterally Moves all extremities. Full function Gait is steady, Speech is normal, Facial symmetry appears normal, Pupils are PERRLA, Intact. Cardiovascular: Capillary refill < 3 seconds Patient's skin is warm and dry. Respiratory: Airway is patent Respiratory effort is even, unlabored, Respiratory pattern is regular, symmetrical, Breath sounds are clear bilaterally. GI: No signs and/or symptoms were reported involving the gastrointestinal system. : No signs and/or symptoms were reported regarding the genitourinary system. EENT: No signs and/or symptoms were reported regarding the EENT system. Derm: Skin is intact, is healthy with good turgor. Musculoskeletal: No signs and/or symptoms reported regarding the musculoskeletal system. 14:30 Reassessment: Patient appears in no apparent distress at this time. No changes from hb previously documented assessment. Patient and/or family updated on plan of care and expected duration. Pain level reassessed. 15:15 Reassessment: Patient appears in no apparent distress at this time. No changes from previously documented assessment. Patient and/or family updated on plan of care and expected duration. Pain level reassessed. 16:15 Reassessment: Patient appears in no apparent distress at this time. No changes from previously documented assessment. Patient and/or family updated on plan of care and expected duration. Pain level reassessed. 17:00 Reassessment: Patient appears in no apparent distress at this time. Patient and/or hb family updated on plan of care and expected duration. Pain level reassessed. Patient is alert, oriented x 3, equal unlabored respirations, skin warm/dry/pink. Patient denies pain at this time. Patient states feeling better. 18:00 Reassessment: Patient appears in no apparent distress at this time. Patient and/or hb family updated on plan of care and expected duration. Pain level reassessed. Patient is alert, oriented x 3, equal unlabored respirations, skin warm/dry/pink. Patient denies pain at this time. Patient states feeling better. 18:20 Reassessment: Pt was discharged home, ambulated with daughter to vehicle. Daughter ran ss back to [facility] to ask for help stating that her dad while standing, tensed up screamed aloud then fell straight backwards and may have had a seizure. exam bed taken out to get patient from [facility] where patient was supine on ground. Bleeding noted to back of head. Pt is awake and responsive to painful stimuli. TRAUMA ALERT called. 19:57 Reassessment: Patient appears in no apparent distress at this time. Patient and/or aa1 family updated on plan of care and expected duration. Pain level reassessed. Patient is alert, oriented x 3, equal unlabored respirations, skin warm/dry/pink. Dr. Camacho at bedside assessing pt. 21:01 Reassessment: Patient appears in no apparent distress at this time. Patient and/or aa1 family updated on plan of care and expected duration. Pain level reassessed. Patient is alert, oriented x 3, equal unlabored respirations, skin warm/dry/pink. Attempted to call report to floor, was told nurse will call back shortly. 21:29 Reassessment: Attempted to call report to 2nd floor again, was told nurse will call aa1 back in 5 mins. 21:57 Reassessment: Patient appears in no apparent distress at this time. Patient and/or aa1 family updated on plan of care and expected duration. Pain level reassessed. Patient is alert, oriented x 3, equal unlabored respirations, skin warm/dry/pink. Report given to Priscila on 2nd floor. Vital Signs: 13:07 BP 148 / 106; Pulse 85; Resp 18; Temp 98.4(TE); Pulse Ox 98% on R/A; Weight 68.04 kg; ss Height 6 ft. 0 in. (182.88 cm); Pain 0/10; 14:00 BP 142 / 92; Pulse 86; Resp 16; Pulse Ox 100% on R/A; hb 15:00 BP 132 / 88; Pulse 86; Resp 16; Pulse Ox 100% on R/A; hb 16:00 BP 127 / 90; Pulse 84; Resp 15; Pulse Ox 99% on R/A; hb 17:00 BP 147 / 76; Pulse 82; Resp 16; Pulse Ox 99% on R/A; hb 18:19 BP 138 / 91; Pulse 121; Pulse Ox 100% ; sv 18:50 BP 135 / 90; Pulse 88; Resp 16; Pulse Ox 97% ; sv 19:57 BP 118 / 82; Pulse 73; Resp 18; Temp 97.0; Pulse Ox 98% on R/A; Pain 0/10; aa1 21:57 BP 122 / 84; Pulse 70; Resp 16; Temp 97.1; Pulse Ox 99% on R/A; Pain 0/10; aa1 13:07 Body Mass Index 20.34 (68.04 kg, 182.88 cm) ss NIH Stroke Scale Scores: 13:30 NIHSS Score: 1 hb 17:43 NIHSS Score: 0 gs ED Course: 12:52 Patient arrived in ED. as 12:52 Tho Olivo MD is Private Physician. as 13:05 Triage completed. ss 13:07 Arm band placed on left wrist. ss 13:10 Inserted saline lock: 20 gauge in right antecubital area, using aseptic technique. ss Blood collected. 13:11 Steve Easley MD is Attending Physician. gs 13:19 Placed in gown. Bed in low position. Call light in reach. Side rails up X 1. hb 13:22 CT completed. Patient tolerated procedure well. Patient moved to CT via stretcher. sj Patient moved back from CT. 13:23 CT Stroke Brain w/o Contrast In Process Unspecified. EDMS 13:25 Patient moved back from CT. hb 13:38 Janey Manriquez, RN is Primary Nurse. hb 14:05 X-ray completed. Portable x-ray completed in exam room. Patient tolerated procedure jb2 well. 14:26 Stroke CXR 1 View In Process Unspecified. EDMS 16:20 Patient moved to MRI via wheelchair. ka 16:31 MRI - Brain W/Wo Cont In Process Unspecified. EDMS 17:53 Harris Gómez MD is Referral Physician. gs 18:06 No provider procedures requiring assistance completed. IV discontinued, intact, hb bleeding controlled, No redness/swelling at site. Pressure dressing applied. 18:25 Initial lab(s) drawn, by me, sent to lab. Inserted saline lock: 20 gauge in right sv forearm, using aseptic technique. Blood collected. Flushed right forearm with 5 ml normal saline. 18:30 court monitor on. Pulse ox on. NIBP on. sv 18:32 Head C Spine Mpr Wo Con In Process Unspecified. EDMS 18:49 EKG done, by ED staff, reviewed by Steve Easley MD. sv 18:50 Warm blanket given. sv 19:01 Forearm Left XRAY In Process Unspecified. EDMS 20:35 Jayna Tubbs MD is Hospitalizing Provider. gs Administered Medications: 15:15 Drug: foLIC Acid 1 mg Route: IVPB; Site: right antecubital; hb 15:20 Follow up: IV Status: Completed infusion hb 16:00 Follow up: Response: No adverse reaction hb 15:20 Drug: Thiamine 100 mg Route: IV; Rate: 1 calculated rate; Site: right antecubital; hb 15:30 Follow up: IV Status: Completed infusion hb 16:00 Follow up: Response: No adverse reaction hb 18:47 Drug: NS 0.9% 1000 ml Route: IV; Rate: 125 ml/hr; Site: right forearm; hb 21:57 Follow up: IV Status: Infusion continued upon admission aa1 Outcome: 17:53 Discharge ordered by . gs 18:06 Discharged to home ambulatory, with family. hb 18:06 Condition: stable 18:06 Discharge instructions given to patient, family, Instructed on discharge instructions, follow up and referral plans. Demonstrated understanding of instructions, follow-up care. 18:08 Patient left the ED. hb 20:35 Decision to Hospitalize by Provider. gs 22:15 Admitted to Tele accompanied by tech, family with patient, via stretcher, room 213, aa1 with chart, Report called to Priscila 22:15 Condition: stable 22:15 Instructed on the need for admit, Demonstrated understanding of instructions. 22:15 Patient left the ED. aa1 NIH Stroke Scale - NIH Stroke Score Date: 04/01/2018 Time: 13:30 Total Score = 1 1a. Level of Consciousness (LOC) - 0(Alert) 1b. Level of Consciousness (LOC) (Year \\T\\ Age) - 0(Both) 1c. LOC Commands (Open \\T\\ Closes Eyes/Entry Tech) - 0(Both) 2. Best Gaze (Lateral Gaze Paresis) - 0(Normal) 3. Visual Field Loss - 0(No visual loss) 4. Facial Palsy - 0(Normal) 5a. Left Arm: Motor (10-second hold) - 0(No drift) 5b. Right Arm: Motor (10-second hold) - 0(No drift) 6a. Left Leg: Motor (5-second hold - always test supine) - 0(No drift) 6b. Right Leg: Motor (5-second hold - always test supine) - 0(No drift) 7. Limb Ataxia (finger/nose \\T\\ heel/flanagan - test with eyes open) - 0(Absent) 8. Sensory Loss (pinprick arms/legs/face) - 0(Normal) 9. Best Language: Aphasia (description/naming/reading) - 1(Mild to moderate aphasia) 10. Dysarthria (speech clarity - read or repeat words) - 0(Normal) 11. Extinction and Inattention (visual/tactile/auditory/spatial/personal) - 0(No abnormality) Initials: hb NIH Stroke Scale - NIH Stroke Score Date: 04/01/2018 Time: 17:43 Total Score = 0 1a. Level of Consciousness (LOC) - 0(Alert) 1b. Level of Consciousness (LOC) (Year \\T\\ Age) - 0(Both) 1c. LOC Commands (Open \\T\\ Closes Eyes/Entry Tech) - 0(Both) 2. Best Gaze (Lateral Gaze Paresis) - 0(Normal) 3. Visual Field Loss - 0(No visual loss) 4. Facial Palsy - 0(Normal) 5a. Left Arm: Motor (10-second hold) - 0(No drift) 5b. Right Arm: Motor (10-second hold) - 0(No drift) 6a. Left Leg: Motor (5-second hold - always test supine) - 0(No drift) 6b. Right Leg: Motor (5-second hold - always test supine) - 0(No drift) 7. Limb Ataxia (finger/nose \\T\\ heel/flanagan - test with eyes open) - 0(Absent) 8. Sensory Loss (pinprick arms/legs/face) - 0(Normal) 9. Best Language: Aphasia (description/naming/reading) - 0(No aphasia) 10. Dysarthria (speech clarity - read or repeat words) - 0(Normal) 11. Extinction and Inattention (visual/tactile/auditory/spatial/personal) - 0(No abnormality) Initials: Signatures: Dispatcher [employer] Lauren Olivier RN RN Lay Balderrama RN RN aa1 Geremias Owen jbCt [place] Amelia as Smirch, Shelby, RN RN Jessica Goodrich Heather, RN RN Steve Easley MD MD Corrections: (The following items were deleted from the chart) 17:27 17:00 Reassessment: Patient appears in no apparent distress at this time. No hb changes from previously documented assessment. Patient and/or family updated on plan of care and expected duration. Pain level reassessed. hb
--- NOTE | 2018-04-01 17:54 | EDPHYS ---
Physician Documentation [facility] Name: Sage Seymour Age: 62 yrs Sex: Male : 1955 Arrival Date: 04/01/2018 Time: 12:52 Bed 3 Private MD: Tho Olivo V ED Physician Steve Easley HPI: 04/01 17:43 This 62 yrs old Male presents to ER via Ambulatory with complaints of gs Hallucinations. 17:43 The patient presents with disorientation. Onset: The symptoms/episode began/occurred at gs 03:00. The patient has been recently been admitted at [facility]. was awake was dreaming vivid dream, states mentally thought dream extending into waking, symptoms resolved, has had before recent stopped drinking 2 weeks ago. Historical: - Allergies: 13:07 No Known Allergies; ss - PMHx: 13:07 mass on lung; Anxiety; Depression; COPD; ss - Immunization history:: Adult Immunizations up to date. - Social history:: Smoking status: Patient uses tobacco products, denies chronic smoking, but will smoke occasionally. - Ebola Screening: : Patient denies exposure to infectious person Patient denies travel to an Ebola-affected area in the 21 days before illness onset. ROS: 17:43 Constitutional: Negative for fever. gs 17:43 All other systems are negative. Exam: 17:43 Head/Face: Normocephalic, atraumatic. Eyes: Pupils equal round and reactive to light, gs extra-ocular motions intact. Lids and lashes normal. Conjunctiva and sclera are non-icteric and not injected. Cornea within normal limits. Periorbital areas with no swelling, redness, or edema. ENT: Nares patent. No nasal discharge, no septal abnormalities noted. Tympanic membranes are normal and external auditory canals are clear. Oropharynx with no redness, swelling, or masses, exudates, or evidence of obstruction, uvula midline. Mucous membranes moist. Neck: Trachea midline, no thyromegaly or masses palpated, and no cervical lymphadenopathy. Supple, full range of motion without nuchal rigidity, or vertebral point tenderness. No Meningismus. Chest/axilla: Normal chest wall appearance and motion. Nontender with no deformity. No lesions are appreciated. Cardiovascular: Regular rate and rhythm with a normal S1 and S2. No gallops, murmurs, or rubs. Normal PMI, no JVD. No pulse deficits. Respiratory: Lungs have equal breath sounds bilaterally, clear to auscultation and percussion. No rales, rhonchi or wheezes noted. No increased work of breathing, no retractions or nasal flaring. Abdomen/GI: Soft, non-tender, with normal bowel sounds. No distension or tympany. No guarding or rebound. No evidence of tenderness throughout. Back: No spinal tenderness. No costovertebral tenderness. Full range of motion. Skin: Warm, dry with normal turgor. Normal color with no rashes, no lesions, and no evidence of cellulitis. MS/ Extremity: Pulses equal, no cyanosis. Neurovascular intact. Full, normal range of motion. 17:43 Constitutional: The patient appears alert, awake. 17:43 Neuro: Orientation: to person, place, time \T\ situation. Mentation: slow to respond, Cranial nerves: CN II- XII are normal as tested, Cerebellar function: no acute changes, Motor: moves all fours, strength is normal, Sensation: is normal. 20:36 ECG was reviewed by the Attending Physician. Vital Signs: 13:07 BP 148 / 106; Pulse 85; Resp 18; Temp 98.4(TE); Pulse Ox 98% on R/A; Weight 68.04 kg; ss Height 6 ft. 0 in. (182.88 cm); Pain 0/10; 14:00 BP 142 / 92; Pulse 86; Resp 16; Pulse Ox 100% on R/A; hb 15:00 BP 132 / 88; Pulse 86; Resp 16; Pulse Ox 100% on R/A; hb 16:00 BP 127 / 90; Pulse 84; Resp 15; Pulse Ox 99% on R/A; hb 17:00 BP 147 / 76; Pulse 82; Resp 16; Pulse Ox 99% on R/A; hb 18:19 BP 138 / 91; Pulse 121; Pulse Ox 100% ; sv 18:50 BP 135 / 90; Pulse 88; Resp 16; Pulse Ox 97% ; sv 19:57 BP 118 / 82; Pulse 73; Resp 18; Temp 97.0; Pulse Ox 98% on R/A; Pain 0/10; aa1 21:57 BP 122 / 84; Pulse 70; Resp 16; Temp 97.1; Pulse Ox 99% on R/A; Pain 0/10; aa1 13:07 Body Mass Index 20.34 (68.04 kg, 182.88 cm) ss NIH Stroke Scale Scores: 13:30 NIHSS Score: 1 hb 17:43 NIHSS Score: 0 gs Laceration: 20:33 Wound Repair of 3cm ( 1.2in ) subcutaneous laceration to left side of the back of head. gs Distal neuro/vascular/tendon intact. Anesthesia: Local anesthetic administered with 5 mls of 1% lidocaine w/ Epi. Wound prep: Simple cleansing. Skin closed with 6 1-0 Marlene using simple sutures and sterile technique. MDM: 13:16 Patient medically screened. gs 17:43 Differential Diagnosis: CVA, electrolyte abnormality, alcohol intoxication, gs hypoglycemia, neoplasm, encephalopathy. Data reviewed: vital signs, nurses notes. Physician consultation: Harris Gómez MD continue b vitamins needs encephalopathy workup. 20:33 ED course: pt had syncopal or sz as he was discharged, 3 cm left parietal laceration, gs pt back to baseline no deficits exam otherwise normal will admit. 04/01 13:16 Order name: Basic Metabolic Panel; Complete Time: 14:36 04/01 13:16 Order name: CBC with Diff; Complete Time: 14:36 04/01 13:16 Order name: Protime (+inr); Complete Time: 14:36 04/01 13:24 Order name: AMMONIA; Complete Time: 14:59 04/01 13:35 Order name: CBC Smear Scan; Complete Time: 14:36 EDAZ 04/01 14:50 Order name: Urine Dipstick--Ancillary (enter results); Complete Time: 20:17 04/01 13:16 Order name: CT Stroke Brain w/o Contrast; Complete Time: 14:36 04/01 13:16 Order name: Stroke CXR 1 View; Complete Time: 14:36 04/01 14:59 Order name: MRI - Brain W/Wo Cont; Complete Time: 17:24 04/01 15:04 Order name: Glucose, Ancillary Testing; Complete Time: 17:24 EDMS 04/01 18:29 Order name: Head C Spine Mpr Wo Con; Complete Time: 19:38 EDAZ 04/01 18:30 Order name: Forearm Left XRAY; Complete Time: 19:38 04/01 18:44 Order name: Glucose, Ancillary Testing; Complete Time: 19:38 EDMS 04/01 13:16 Order name: EKG; Complete Time: 13:18 04/01 13:16 Order name: Accucheck; Complete Time: 13:38 gs 04/01 13:16 Order name: Cardiac monitoring; Complete Time: 13:39 04/01 13:16 Order name: EKG - Nurse/Tech; Complete Time: 13:39 04/01 13:16 Order name: IV Saline Lock; Complete Time: 13:39 04/01 13:16 Order name: Labs collected and sent; Complete Time: 13:39 04/01 13:16 Order name: NPO; Complete Time: :39 04/01 13:16 Order name: O2 Per Protocol; Complete Time: 13:39 04/01 13:16 Order name: O2 Sat Monitoring; Complete Time: 13:39 04/01 13:16 Order name: Stroke Swallow Screen; Complete Time: : 04/01 18:25 Order name: EKG - Nurse/Tech; Complete Time: 18:50 gs EC:42 Rate is 79 beats/min. MS interval is normal. QRS interval is normal. T waves are gs Normal. No ST changes noted. Clinical impression: Abnormal EKG without significant change. Interpreted by me. Administered Medications: 15:15 Drug: foLIC Acid 1 mg Route: IVPB; Site: right antecubital; hb 15:20 Follow up: IV Status: Completed infusion hb 16:00 Follow up: Response: No adverse reaction hb 15:20 Drug: Thiamine 100 mg Route: IV; Rate: 1 calculated rate; Site: right antecubital; hb 15:30 Follow up: IV Status: Completed infusion hb 16:00 Follow up: Response: No adverse reaction hb 18:47 Drug: NS 0.9% 1000 ml Route: IV; Rate: 125 ml/hr; Site: right forearm; hb 21:57 Follow up: IV Status: Infusion continued upon admission aa1 Disposition: 04/01/18 20:35 Hospitalization ordered by Jayna Tubbs for Observation. Preliminary diagnosis are Syncope and collapse, Epilepsy and recurrent seizures. - Bed requested for Telemetry/MedSurg (observation). - Status is Observation. aa1 - Condition is Stable. - Problem is new. - Symptoms have improved. UTI on Admission? No NIH Stroke Scale - NIH Stroke Score Date: 04/01/2018 Time: 13:30 Total Score = 1 1a. Level of Consciousness (LOC) - 0(Alert) 1b. Level of Consciousness (LOC) (Year \T\ Age) - 0(Both) 1c. LOC Commands (Open \T\ Closes Eyes/Access Services Representative) - 0(Both) 2. Best Gaze (Lateral Gaze Paresis) - 0(Normal) 3. Visual Field Loss - 0(No visual loss) 4. Facial Palsy - 0(Normal) 5a. Left Arm: Motor (10-second hold) - 0(No drift) 5b. Right Arm: Motor (10-second hold) - 0(No drift) 6a. Left Leg: Motor (5-second hold - always test supine) - 0(No drift) 6b. Right Leg: Motor (5-second hold - always test supine) - 0(No drift) 7. Limb Ataxia (finger/nose \T\ heel/flanagan - test with eyes open) - 0(Absent) 8. Sensory Loss (pinprick arms/legs/face) - 0(Normal) 9. Best Language: Aphasia (description/naming/reading) - 1(Mild to moderate aphasia) 10. Dysarthria (speech clarity - read or repeat words) - 0(Normal) 11. Extinction and Inattention (visual/tactile/auditory/spatial/personal) - 0(No abnormality) Initials: NIH Stroke Scale - NIH Stroke Score Date: 04/01/2018 Time: 17:43 Total Score = 0 1a. Level of Consciousness (LOC) - 0(Alert) 1b. Level of Consciousness (LOC) (Year \T\ Age) - 0(Both) 1c. LOC Commands (Open \T\ Closes Eyes/Access Services Representative) - 0(Both) 2. Best Gaze (Lateral Gaze Paresis) - 0(Normal) 3. Visual Field Loss - 0(No visual loss) 4. Facial Palsy - 0(Normal) 5a. Left Arm: Motor (10-second hold) - 0(No drift) 5b. Right Arm: Motor (10-second hold) - 0(No drift) 6a. Left Leg: Motor (5-second hold - always test supine) - 0(No drift) 6b. Right Leg: Motor (5-second hold - always test supine) - 0(No drift) 7. Limb Ataxia (finger/nose \T\ heel/flanagan - test with eyes open) - 0(Absent) 8. Sensory Loss (pinprick arms/legs/face) - 0(Normal) 9. Best Language: Aphasia (description/naming/reading) - 0(No aphasia) 10. Dysarthria (speech clarity - read or repeat words) - 0(Normal) 11. Extinction and Inattention (visual/tactile/auditory/spatial/personal) - 0(No abnormality) Initials: gs Signatures: Dispatcher [employer] EDAZ Jory Bailey RN RN Lay Balderrama RN ALICIA aa1 Melinda Juarez RN ALICIA ss Janey Manriquez RN RN Steve Easley MD MD Corrections: (The following items were deleted from the chart) 18:08 17:53 04/01/2018 17:53 Discharged to Home. Impression: Encephalopathy, hb unspecified. Condition is Stable. Forms are Medication Reconciliation Form, Thank You Letter, Antibiotic Education, Prescription Opioid Use. Follow up: Harris Gómez; When: 2 - 3 days; Reason: Re-evaluation by your physician. 18:29 18:23 Head Brain Wo Cont+CT.RAD.BRZ ordered. [facility] EDAZ 18:31 18:08 04/01/2018 17:53 Discharged to Home. Impression: Encephalopathy, gs unspecified. Condition is Stable. Forms are Medication Reconciliation Form, Thank You Letter, Antibiotic Education, Prescription Opioid Use. Follow up: Harris Gómez; When: 2 - 3 days; Reason: Re-evaluation by your physician. hb 20:49 20:35 Hospitalization Ordered by Jayna Tubbs MD for Observation. Preliminary mw diagnosis is Syncope and collapse; Epilepsy and recurrent seizures. Bed requested for Telemetry/MedSurg (observation). Status is Observation. Condition is Stable. Problem is new. Symptoms have improved. UTI on Admission? No. gs 22:15 20:49 04/01/2018 20:35 Hospitalization Ordered by Jayna Tubbs MD for aa1 Observation. Preliminary diagnosis is Syncope and collapse; Epilepsy and recurrent seizures. Bed requested for Telemetry/MedSurg (observation). Status is Observation. Condition is Stable. Problem is new. Symptoms have improved. UTI on Admission? No. mw
[2018-04-01] MEDS ORDERED: NA CHLORIDE 0.9% 1,000 ML ONE (18:49)
[2018-04-01] MEDS ORDERED: LIDOCAINE 1% W/EPI 1:100,000 MDV 50 ML VIAL ONE (18:54)
--- NOTE | 2018-04-01 19:10 | RAD REPORT ---
EXAM DESCRIPTION: CT - Head C Spine Mpr Wo Con - 04/01/2018 6:32 pm CLINICAL HISTORY: Seizure. Head and neck injury status post fall. Head and neck pain COMPARISON: None. TECHNIQUE: Computed axial tomography of the head and cervical spine was obtained. Sagittal and coronal reconstruction was performed. All CT scans are performed using dose optimization technique as appropriate and may include automated exposure control or mA/KV adjustment according to patient size. FINDINGS: A left parietal scalp hematoma without underlying skull fracture. An intracranial bleed is not seen. The ventricles are normal in caliber. An extra-axial fluid collect ion is not noted.Fluid is present within the left maxillary and frontal sinus which may indicate sinu sitis A cervical fracture is not visualized. No dislocation is noted. 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 Spondylosis involves the cervical spine IMPRESSION: No acute intracranial abnormality is seen. A cervical fracture is not visualized. If the patient continues to have symptoms to suggest intracra nial /spinal cord pathology then MRI would be recommended
--- NOTE | 2018-04-01 19:11 | RAD REPORT ---
EXAM DESCRIPTION: RAD - Forearm Left - 04/01/2018 6:58 pm CLINICAL HISTORY: Left forearm pain status post injury FINDINGS: No fracture is seen
--- NOTE | 2018-04-01 19:38 | EKG ---
Test Date: 2018-04-01 Test Time: 13:44:14 Technical Product Manager: LEE ANN MEASUREMENT RESULTS: Intervals: Rate: 64 NH: 208 QRSD: 94 QT: 404 QTc: 416 [place]: P: 54 NH: 208 QRS: -35 T: 71 INTERPRETIVE STATEMENTS: Normal sinus rhythm Left axis deviation Incomplete right bundle branch block Abnormal ECG Compared to ECG 03/26/2018 16:44:08 Incomplete right bundle-branch block now present Ventricular premature complex(es) no longer present Electronically Signed On 04-01-18 19:37:20 JEWEL [employer]ARING GRINDER by Triston Hyatt
[2018-04-01 20:03] LABS: Urine Blood NEGATIVE (NEG); Urine Glucose NEGATIVE (NEG); Urine Protein NEGATIVE (NEG); Urine pH 6.5 (5.0-7.0)
[2018-04-01] MEDS ORDERED: ONDANSETRON 4 MG/2 ML VIAL IV PRN (22:18)
[2018-04-01] MEDS ORDERED: IPRATROPIUM BROM 0.5MG/2.5ML NEB PRN (22:18)
[2018-04-01] MEDS ORDERED: ALBUTEROL 2.5 MG/3 ML NEB SOL NEB PRN (22:18)
[2018-04-01] MEDS ORDERED: ACETAMINOPHEN 500 MG TAB PO PRN (22:18)
[2018-04-01 22:37] VITALS: BMI 21.4
[2018-04-01] MEDS: NA CHLORIDE 0.9% 1,000 ML IV SCH (22:56)
--- NOTE | 2018-04-02 02:45 | P.HP ---
Certification for Inpatient Patient admitted to: Observation With expected LOS: <2 Midnights Practitioner: I am a practitioner with admitting privileges, knowledge of patient current condition, hospital course, and medical plan of care. Services: Services provided to patient in accordance with Admission requirements found in Title 42 Section 412.3 of the Code of Federal Regulations Patient History Date of Service: 04/01/18 Reason for admission: syncope, acute encephalopathy History of Present Illness: Mr Seymour is a 62 years old male with history of tobacco abuse, COPD, alcohol abuse, anxiety, recently admitted to the hospital and found to have a lung mas, suspicious for malignancy. He had a percutaneous biopsy, pathology report still pending. Last night the patient was in his daughter house, and he become confused, and disoriented. No history of fever, chills, nausea, vomiting, diarrhea, abdominal or chest pain. The patient came this morning to ER for evaluation, he had a CT head which showed no acute abnormalities. The patient then was discharged home. However, when he was in the hospital parking lot, when he had a syncopal episode. He denied any chest pain or palpitations before that happens. There was no tongue bite tomlin, no sphincter relaxations either. Repeated CT head/c-spine showed no acute abnormalities. Subsequent brain MRI was also negative for acute abnormalities. Lab work reported normal WBC count. No fever. Allergies No Known Allergies Allergy (Verified 04/01/18 23:01) Home medications list reviewed: Yes Home Medications: NK [No Home Meds] 04/01/18 - Past Medical/Surgical History Has patient received pneumonia vaccine in the past: No Diabetic: No -: COPD -: Lung mass -: Anxiety -: tobacco abuse -: alcohol abuse -: Vasectomy - Family History Mother -: Heart disease, Hypertension, Diabetes - Social History Smoking Status: Current some day smoker Alcohol use: Yes CD- Drugs: No Caffeine use: No Place of Residence: Home Review of Systems 10-point ROS is otherwise unremarkable Physical Examination - Vital Signs Temperature: 98.7 F Blood Pressure: 131/62 Pulse: 72 Respirations: 18 Pulse Ox (%): 92 - Physical Exam General: Alert, In no apparent distress HEENT: Atraumatic, PERRLA, Mucous membr. moist/pink, EOMI, Sclerae nonicteric Neck: Supple, 2+ carotid pulse no bruit, No LAD, Without JVD or thyroid abnormality Respiratory: Clear to auscultation bilaterally, Normal air movement Cardiovascular: Normal S1 S2, No gallops Gastrointestinal: Normal bowel sounds, No tenderness Musculoskeletal: No tenderness Integumentary: No rashes Neurological: Normal speech, Normal strength at 5/5 x4 extr, Normal tone, Normal affect Lymphatics: No axilla or inguinal lymphadenopathy - Studies Laboratory Data (last 24 hrs) 04/01/18 13:17: PT 12.9 H, INR 1.09 04/01/18 13:17: WBC 5.1, Hgb 10.7 L, Hct 31.8 L, Plt Count 182 D 04/01/18 13:17: Sodium 133 L, Potassium 3.5, BUN 12, Creatinine 0.74, Glucose 100 Assessment and Plan - Problems (Diagnosis) (1) Syncope Current Visit: Yes Status: Acute Qualifiers: Syncope type: unspecified Qualified Code(s): R55 - Syncope and collapse (2) Lung mass Current Visit: No Status: Acute (3) Tobacco abuse Current Visit: No Status: Acute (4) COPD (chronic obstructive pulmonary disease) Current Visit: No Status: Chronic Qualifiers: COPD type: chronic bronchitis Chronic bronchitis type: simple Qualified Code(s): J41.0 - Simple chronic bronchitis - Plan Will admit the patient to the hospital for observation due to syncopal episode. EKG sinus rhythm without ST-t abnormalities or arrhythmias, incomplete right bundle block. Will order carotid doppler. Consult Neurology. - Advance Directives Does patient have a Living Will: No Does patient have a Durable POA for Healthcare: No - Code Status/Comfort Care Code Status Assessed: Yes Code Status: Full Code
[2018-04-02 06:15] LABS: Absolute Lymphocytes (CBC) 1.1 K/uL (0.7-4.9); Absolute Monocytes 0.5 K/uL (0.1-1.3); Absolute Neutrophil 3.2 K/uL (1.8-8.0); Basophils % 0.7 % (0-1.3); Eosinophils % 1.1 % (0-4.4); Hematocrit 26.9 % (39.6-49.0); Lymphocytes % 22.2 % (15.3-44.8); RBC Red Blood Cell Count 2.48 M/uL (4.33-5.43)
[2018-04-02 06:48] LABS: BUN Blood Urea Nitrogen 9 mg/dL (7-18); Bicarbonate 24 mmol/L (21-32); Glucose Level 78 mg/dL (74-106); Magnesium 1.8 mg/dL (1.8-2.4); Potassium 4.1 mmol/L (3.5-5.1); Sodium Level 137 mmol/L (136-145)
[2018-04-02 07:47] LABS: Anisocytosis 1+; Blood Morphology Comment NOTED (NOT SEEN); Macrocytosis 1+; Platelet Estimate DECR; Urine White Blood Cell Casts OK
[2018-04-02] MEDS: NA CHLORIDE 0.9% 1,000 ML IV SCH ×3 (08:18→17:55)
[2018-04-02] MEDS ORDERED: THIAMINE HCL 100 MG TABLET PO SCH (09:00)
[2018-04-02] MEDS ORDERED: FAMOTIDINE 20 MG TAB PO SCH (09:00)
[2018-04-02] MEDS ORDERED: MAGNESIUM SULFATE 1 gm IVPB 1 GM/100 ML BAG IV ONE (09:00)
[2018-04-02] MEDS ORDERED: DULERA 200/5 (MOMETASONE/FORMOTEROL) INHALER IH SCH (09:00)
--- NOTE | 2018-04-02 10:17 | RAD REPORT ---
EXAM DESCRIPTION: US - CP - 04/02/2018 8:20 am CLINICAL HISTORY: Syncope COMPARISON: None. TECHNIQUE: Real-time sonographic evaluation of both carotid systems was performed. Albright scale and Do ppler interrogation were performed with waveform tracing bilaterally. FINDINGS: Normal high resistance waveforms are noted in both external carotid arteries. The common c arotid arteries and internal carotid arteries show normal low resistance waveforms. Small calcified plaques are present in each carotid bulb. No significant luminal narrowing seen. Bila teral internal carotid arteries are tortuous. Peak systolic and end diastolic velocity values and the ICA/CCA ratios are in the non-hemodynamically significant range. Antegrade flow seen in both vertebral arteries. Velocity values and ratios were recorded and are retained in the patient's imaging records. IMPRESSION: Small calcified plaques in each carotid bulb not causing significant luminal narrowing. No evidence of a hemodynamically significant stenosis.
--- NOTE | 2018-04-02 11:16 | P.DS ---
Admission Date: 04/01/18 Discharge Date: 04/02/18 Primary Care Provider: None; To see Dr. Olivo Disposition: ROUTINE DISCHARGE Discharge Condition: GOOD Reason for Admission: syncope, acute encephalopathy Consultations: Neurology-Dr. Gómez Procedures: MRI Brain: COMPARISON: Ct Stroke Brain Wo Cont dated 04/01/2018 TECHNIQUE: Multi-sequence, multiplanar MR imaging of the brain was performed with contrast. FINDINGS: No intracranial hemorrhage, hydrocephalus, or extra-axial fluid collection. No edema or shift of midline structures. No intracranial mass. DWI is negative for acute CVA. The midline structures are normally formed. Mild mucoperiosteal thickening of both maxillary antra. Mild mucosal opacification of left frontoethmoidal sinuses. Post-contrast images show no abnormal enhancement to suggest intracranial metastatic disease. IMPRESSION: No acute intracranial abnormality is seen. No finding to indicate intracranial metastatic disease. Carotid doppler: COMPARISON: None. TECHNIQUE: Real-time sonographic evaluation of both carotid systems was performed. Albright scale and Doppler interrogation were performed with waveform tracing bilaterally. FINDINGS: Normal high resistance waveforms are noted in both external carotid arteries. The common carotid arteries and internal carotid arteries show normal low resistance waveforms. Small calcified plaques are present in each carotid bulb. No significant luminal narrowing seen. Bilateral internal carotid arteries are tortuous. Peak systolic and end diastolic velocity values and the ICA/CCA ratios are in the non -hemodynamically significant range. Antegrade flow seen in both vertebral arteries. Velocity values and ratios were recorded and are retained in the patient's imaging records. IMPRESSION: Small calcified plaques in each carotid bulb not causing significant luminal narrowing. No evidence of a hemodynamically significant stenosis. CT scan: COMPARISON: None. TECHNIQUE: Computed axial tomography of the head was obtained. IV contrast was not requested. All CT scans are performed using dose optimization technique as appropriate and may include automated exposure control or mA/KV adjustment according to patient size. FINDINGS: An intracranial bleed is not seen . The ventricles are normal in caliber. No extra-axial fluid collection is noted. Fluid within the left maxillary and frontal sinus may indicate acute sinusitis IMPRESSION: No acute intracranial abnormality is seen. If patient's symptoms persist MRI of the brain would be recommended. Follow up CT: COMPARISON: None. TECHNIQUE: Computed axial tomography of the head and cervical spine was obtained. Sagittal and coronal reconstruction was performed. All CT scans are performed using dose optimization technique as appropriate and may include automated exposure control or mA/KV adjustment according to patient size. FINDINGS: A left parietal scalp hematoma without underlying skull fracture. An intracranial bleed is not seen. The ventricles are normal in caliber. An extra-axial fluid collection is not noted.Fluid is present within the left maxillary and frontal sinus which may indicate sinusitis A cervical fracture is not visualized. No dislocation is noted. Congenital nonunion of the anterior and posterior arch of C1. Spondylosis involves the cervical spine IMPRESSION: No acute intracranial abnormality is seen. A cervical fracture is not visualized. EEG: Results pending CXR: COMPARISON: March 26, 2018 FINDINGS: Right lateral mid lung opacity is present. Left lung appears clear of acute infiltrate. The heart is normal size Medical Problem list: Syncope, resolved Fall with left parietal scalp hematoma Anemia COPD Lung mass pathology pending History tobacco and alcohol use Anxiety Brief History of Present Illness: 62-year-old male presented to the emergency room yesterday. He reported some disorientation and confusion. Patient denied any fever, chills, nausea or vomiting. No significant chest pain noted. Patient was recently hospitalized found to have a lung mass. Patient had biopsy at that time. Pathology pending at this time. Patient was worked up in the emergency room which included a CT scan of the head and MRI which was unremarkable. Patient was discharged. However in the parking lot patient had a syncopal episode. Patient denied any chest pain or palpitations. No tongue bite tomlin or seizure activity was identified. Repeat CT scan head and spine unremarkable. Patient was admitted for further evaluation. Hospital Course: Patient presented with syncope and fall. Patient had left parietal hematoma and laceration. Patient now with jessi. In the emergency room, CT scan of head and MRI with and without contrast was unremarkable. No evidence of infection identified. Urinalysis unremarkable. Chest x-ray unremarkable. Pro calcitonin unremarkable. EEG ordered. Case discussed at length with Neurology. No need for further intervention. Patient has worked with physical therapy and ambulated. No other episode of syncope. Patient will be discharged home. Patient found to be anemic. Patient will continue with multi vitamin daily and thiamine 1 pill daily. Patient with recent lung biopsy for possible lung cancer. Pathology still pending. Patient will follow up with pulmonology as an outpatient to further address. Patient with COPD. Patient will continue with his medication-Dulera 2 puffs twice daily and Pro air 2 puffs 3 times a day as needed for shortness of breath. Patient may follow up with pulmonology as an outpatient to further address.. Patient with history of tobacco and alcohol use. Patient will need to continue with cessation of both. Vital Signs/Physical Exam: Temp Pulse Resp BP Pulse Ox 97.6 F 86 17 143/84 H 97 04/02/18 08:00 04/02/18 08:00 04/02/18 08:00 04/02/18 08:00 04/02/18 08:00 General: Alert, In no apparent distress, Oriented x3, Cooperative HEENT: Other (Bandage in place) Neck: Supple Respiratory: Clear to auscultation bilaterally, Normal air movement Cardiovascular: Normal pulses, Regular rate/rhythm Gastrointestinal: Normal bowel sounds, Soft and benign, Non-distended, No tenderness, No masses, No rebound, No guarding Musculoskeletal: No erythema, No tenderness, No warmth Integumentary: No tenderness/swelling, No erythema, No warmth, No cyanosis Neurological: Normal speech, Normal strength at 5/5 x4 extr, Normal tone, Normal affect Laboratory Data at Discharge: WBC 4.9 K/uL (4.3-10.9) 04/02/18 05:16 Hgb 8.9 g/dL (13.6-17.9) L 04/02/18 05:16 Hct 26.9 % (39.6-49.0) L D 04/02/18 05:16 Plt Count 134 K/uL (152-406) L D 04/02/18 05:16 PT 12.9 SECONDS (9.5-12.5) H 04/01/18 13:17 INR 1.09 04/01/18 13:17 Sodium 137 mmol/L (136-145) 04/02/18 05:16 Potassium 4.1 mmol/L (3.5-5.1) 04/02/18 05:16 BUN 9 mg/dL (7-18) 04/02/18 05:16 Creatinine 0.56 mg/dL (0.55-1.3) 04/02/18 05:16 Glucose 78 mg/dL (74-106) 04/02/18 05:16 Magnesium 1.8 mg/dL (1.8-2.4) 04/02/18 05:16 Home Medications: Albuterol Sulfate [Proair Hfa] 8.5 gm IH TID PRN #1 hfa.aer.ad 04/02/18 Mometasone/Formoterol [Dulera 200 Mcg/5 Mcg Inhaler] 2 puff IH BID #1 inhaler Multivitamin [Daily Multiple Vitamin] 1 each PO DAILY #90 tablet 04/02/18 Thiamine HCl [Vitamin B-1*] 100 mg PO DAILY #90 tablet 04/02/18 New Medications: Albuterol Sulfate [Proair Hfa] 8.5 gm IH TID PRN #1 hfa.aer.ad PRN Reason: Shortness Of Breath Mometasone/Formoterol [Dulera 200 Mcg/5 Mcg Inhaler] 2 puff IH BID #1 inhaler Multivitamin [Daily Multiple Vitamin] 1 each PO DAILY #90 tablet Thiamine HCl [Vitamin B-1*] 100 mg PO DAILY #90 tablet Patient Discharge Instructions: 1. Patient will follow up with Dr. Pallavi sullivan to establish care. 2. Patient presented with syncope and fall. Patient had left parietal hematoma and laceration. Patient now with jessi. In the emergency room, CT scan of head and MRI with and without contrast was unremarkable. No evidence of infection identified. Urinalysis unremarkable. Chest x-ray unremarkable. Pro calcitonin unremarkable. EEG ordered. Case discussed at length with Neurology. No need for further intervention. Patient has worked with physical therapy and ambulated. No other episode of syncope. Patient will be discharged home. Patient found to be anemic. Patient will continue with multi vitamin daily and thiamine 1 pill daily. 3. Patient with recent lung biopsy for possible lung cancer. Pathology still pending. Patient will follow up with pulmonology as an outpatient to further address. 4. Patient with COPD. Patient will continue with his medication-Dulera 2 puffs twice daily and Pro air 2 puffs 3 times a day as needed for shortness of breath. Patient may follow up with pulmonology as an outpatient to further address.. 5. Patient with history of tobacco and alcohol use. Patient will need to continue with cessation of both. Diet: Regular Activity: Fall precautions Time spent managing pt's care (in minutes): 55
[2018-04-02 11:28] VITALS: O2SAT 97
[2018-04-02 11:52] LABS: Hematocrit 28.9 % (39.6-49.0)
[2018-04-02] MEDS ORDERED: ENOXAPARIN 30 MG/0.3 ML SQ SCH (17:00)
[2018-04-02 17:08] LABS: Ferritin 690.7 ng/mL (26-388)
[2018-04-02 17:13] VITALS: BP 138/86; TEMP 97.2
--- NOTE | 2018-04-02 19:49 | EKG ---
Test Date: 2018-04-01 Test Time: 18:42:30 Grab Driver: HB MEASUREMENT RESULTS: Intervals: Rate: 79 HI: 194 QRSD: 98 QT: 392 QTc: 449 [place]: P: 74 HI: 194 QRS: -58 T: 52 INTERPRETIVE STATEMENTS: Normal sinus rhythm Left axis deviation Incomplete right bundle branch block Abnormal ECG Compared to ECG 04/01/2018 13:44:14 No significant changes Electronically Signed On 04-02-18 19:45:58 BUG TRIMMER by Triston Hyatt
--- NOTE | 2018-04-03 07:52 | ECHO ---
HEIGHT: 6 ft 0 in WEIGHT: 157 lb 11.2 oz DATE OF STUDY: 04/02/[address]: Wojciech Johnson DO 2-DIMENSIONAL: YES M.MODE: YES DOPPLER: YES COLOR FLOW: YES TDS: PORTABLE: DEFINITY: BUBBLE STUDY: DIAGNOSIS: SYNCOPE CARDIAC HISTORY: CATHERIZATION: NO SURGERY: NO PROSTHETIC VALVE: NO PACEMAKER: NO MEASUREMENTS (cm) DIASTOLIC (NORMALS) SYSTOLIC (NORMALS) IVSd 1.2 (0.6-1.2) LA Diam 4.5 (1.9-4.0) LVEF 68% LVIDd 4.4 (3.5-5.7) LVIDs 2.7 (2.0-3.5) %FS 38% LVPWd 1.1 (0.6-1.2) Ao Diam 4.3 (2.0-3.7) 2 DIMENSIONAL ASSESSMENT: RIGHT ATRIUM: NORMAL LEFT ATRIUM: DILATED RIGHT VENTRICLE: NORMAL LEFT VENTRICLE: NORMAL TRICUSPID VALVE: NORMAL MITRAL VALVE: NORMAL PULMONIC VALVE: NORMAL AORTIC VALVE: NORMAL PERICARDIAL EFFUSION: NONE AORTIC ROOT: NORMAL LEFT VENTRICULAR WALL MOTION: NORMAL DOPPLER/COLOR FLOW: MILD TRICUSPID REGURGITATION MODERATE PULMONARY HYPERTENSION COMMENTS: MODERATE PULMONARY HYPERTENSION RIGHT VENTRICULAR SYSTOLIC PRESSURE 46 mmHg. NORMAL LEFT VENTRICULAR SIZE AND FUNCTION. LEFT ATRIAL ENLARGEMENT. NO EFFUSION. TECHNOLOGIST: REANNA IGNACIO
--- NOTE | 2018-04-07 15:20 | EEG ---
CHART: [id number] TEST ID#: [id number] DATE OF STUDY: 04/02/2018 THE EEG WAS RECORDED PORTABLE IN THE PATIENTS ROOM ON A 17 CHANNEL MACHINE. ELECTRODES WERE APPLIED IN THE USUAL MANNER USING THE INTERNATIONAL 10-20 SYSTEM. THE WAKING BACKGROUND RHYTHM IN THIS RECORD CONSISTS OF FAIRLY WELL DEVELOPED AND FAIRLY WELL ORGANIZED WAVES OF 9 HZ., MAXIMAL IN THE POSTERIOR HEAD REGIONS WHICH ATTENUATE NORMALLY WITH EYE OPENING. LOW-VOLTAGE 18-22 HZ ACTIVITY IS EXPRESSED IN THE FRONTAL REGIONS. MODERATE VOLTAGE 1.5-3 HZ ACTIVITY IS EXPRESSED OCCASIONALLY IN THE FRONTAL REGIONS. THERE ARE NO FOCAL OR LATERALIZING FEATURES. NO EPILEPTIFORM ACTIVITY APPEARS. SLEEP OCCURRED NATURALLY. IN ADDITION NORMAL SLEEP PATTERNS ARE PRESENT. HYPERVENTILATION WAS NOT PERFORMED. PHOTIC STIMULATION PRODUCED FAIR DRIVING BILATERALLY. IMPRESSION: THIS IS A MILDLY ABNORMAL EEG DUE TO A MILDLY SLOW BACKGROUND. THIS IS A NON-SPECIFIC FINDING INDICATING THE PRESENCE OF A MILD DIFFUSE DISTURBANCE IN CEREBRAL FUNCTION.
== END 2018-04-02 17:58 | disposition home or self-care (01) ==
LOC: ER 12:51 → ERHOLD 20:16 → 2ND 22:10
PROVIDERS: ADMIT Internal Medicine; ATTEND Internal Medicine
PROC: 0JQ00ZZ Repair Scalp Subcutaneous Tissue and Fascia, Open Approach (ICD-10-PCS; principal; 2018-04-01)
DX: R55 Syncope and collapse (principal); S01.01XA Laceration without foreign body of scalp, initial encounter; R91.8 Other nonspecific abnormal finding of lung field; D64.9 Anemia, unspecified; J44.9 Chronic obstructive pulmonary disease, unspecified; F41.9 Anxiety disorder, unspecified; F17.210 Nicotine dependence, cigarettes, uncomplicated; W01.0XXA Fall on same level from slipping, tripping and stumbling without subsequent striking against object, initial encounter; Y92.481 Parking lot as the place of occurrence of the external cause
CPT/HCPCS: 36415; 70450; 70553; 71045; 72125; 80048; 81003; 82140; 82607; 82728; 82962; 83540; 83735; 84145; 84466; 85014; 85018; 85025; 85610; 93005; 93306; 93880; 95816; 96361; 96374; 96375; 97163; 99285; A9577; G0378; J3411; J3475; J7030; J7606

== ENCOUNTER 2018-05-08 06:56 | Day surgery (SDC) | payer SELFPAY ==
[2018-05-08] MEDS ORDERED: Ringers Lactate 1,000 ML IV ONE (07:31)
[2018-05-08] MEDS: LIDOCAINE 4% TOP SOLUTION ONE ×2 (07:35→08:00)
[2018-05-08] MEDS ORDERED: GLYCOPYRROLATE 0.2 MG/ML SYR ONE (07:50)
[2018-05-08] MEDS ORDERED: LIDOCAINE 1% MPF 30 ML VIAL ONE (07:50)
[2018-05-08] MEDS ORDERED: FENTANYL CITR 100 MCG/2 ML ONE (07:59)
[2018-05-08] MEDS ORDERED: MIDAZOLAM HCL 2 MG/2 ML INJ ONE (07:59)
[2018-05-08] MEDS ORDERED: PROPOFOL 200 MG/20 ML VIAL IV ONE (08:00)
[2018-05-08] MEDS ORDERED: LIDOCAINE 1% MPF 5 ML VIAL ONE (08:00)
[2018-05-08] MEDS ORDERED: Phenylephrine HCl 10 MG/ML 1 ML VIAL ONE (08:01)
--- NOTE | 2018-05-08 08:29 | P.OP ---
Date of Service: 05/08/18 (Bronchoscopy with right upper lobe transbronchial biopsies BAL and a wire brushing) Findings and Operative Technique Patient is 62 years of age evaluated by me for a right upper lobe lung mass FNA was nondiagnostic patient is a smoker and for bronchoscopy After obtaining informed consent from the patient he was premedicated by anesthesia. Finding normal vocal cords normal trachea normal right and left-sided bronchial anatomy no endobronchial lesions visible. Multiple biopsies were performed from the right upper lobe anterior segment including a wire brush and BAL patient tolerated the procedure very well did not experience any hypertension arrhythmias postoperative chest x-ray will be obtained
[2018-05-08 08:59] VITALS: O2SAT 100
[2018-05-08 09:47] VITALS: TEMP 98.6
[2018-05-08 09:49] VITALS: BP 123/76
--- NOTE | 2018-05-08 09:56 | RAD REPORT ---
EXAM DESCRIPTION: Estefan[facility]at Single View05/08/2018 9:50 am CLINICAL HISTORY: Bronchoscopy. COMPARISON: April 30, 2018 FINDINGS: A pneumothorax is not visualized status post bronchoscopy.
--- NOTE | 2018-05-08 10:59 | RAD REPORT ---
EXAM DESCRIPTION: RAD - FLUORO-GUIDE FOR BRONCH [id number] - 05/08/2018 9:06 am CLINICAL HISTORY: Bronchoscopy FINDINGS: Three fluoroscopic spot images obtained. Fluoroscopy time 5.3 minutes. Right bronchoscopy performed by Dr. Jean. A bronchoscope is present within the right lung. Please refer to Dr. Jean's report for additional findings.
== END 2018-05-08 10:20 | disposition home or self-care (01) ==
LOC: OR 06:56
PROVIDERS: ATTEND Internal Medicine Sleep Medicine
PROC: 0B9C8ZX Drainage of Right Upper Lung Lobe, Via Natural or Artificial Opening Endoscopic, Diagnostic (ICD-10-PCS; 2018-05-08)
PROC: 0BBC8ZX Excision of Right Upper Lung Lobe, Via Natural or Artificial Opening Endoscopic, Diagnostic (ICD-10-PCS; principal; 2018-05-08 08:00)
DX: R91.8 Other nonspecific abnormal finding of lung field (principal); F34.1 Dysthymic disorder; F17.210 Nicotine dependence, cigarettes, uncomplicated; Z79.899 Other long term (current) drug therapy
CPT/HCPCS: 71045; 76000; 87015; 87102; 87116; 87206; 88108; 88305; J2250; J2370; J2704; J3010